=== PATIENT | male | born 1950 | race Caucasian/White ===

== ENCOUNTER 2016-09-09 05:52 | Inpatient (IN) | payer OTHER ==
[~2016-09-09] VITALS: Ht 160 cm; Wt 69.6 kg
[2016-09-09] VITALS (8 sets, daily range): BP systolic 101–167; BP diastolic 61–84; PULSE 54–67; TEMP 36.6–37; O2SAT 93–97; Ht 160 cm; Wt 69.6 kg
[2016-09-09] MEDS ORDERED: ASPIRIN 324 MG CHEW PO STA (06:03)
[2016-09-09] MEDS ORDERED: NITROGLYCERIN 0.4 MG SL PER TAB CHARGE SL STA ×2 (06:03→06:39)
[2016-09-09] MEDS ORDERED: CIPRO 0.2%/HYDROCORTISONE 1% OTIC SUSP 10 ML BTL OTB STA (06:04)
--- NOTE | 2016-09-09 06:10 | EMERGENCY ROOM VISIT NOTE ---
History First contact with patient: 05:57 Chief Complaint: CHEST PAIN Stated Complaint: CHEST PAINS Nursing Triage Summary: pt reports mid chest pain intermittently x 2 days. constant pain started around 0400 while lifting boxes at work. pt reprots "I took tums and it relieved it for a few minutes and then it came back and I started vomiting." History of Present Illness The patient is a 66 year old male who presents to the Emergency Room for evaluation of chest pain. Notes intermittent increasing substernal chest pain/ pressure over the last 2-3 days. Associated nausea. Pain signfiicantly worse this morning with vomiting. No radiation, syncope, shob, palpitations. Denies trauma, injury. Lifts boxes regularly but denies this cause. Admits some discomfort with exertion over last few days. Denies previous cardiac history. Father with [place] in his 60s. Patient notes history of DMII. Denies HTN, DLP, Smoking. Unsure if previous cardiac work-up but denies anything done in last few years. No other symptoms. No medications prior to arrival. Notes patient has been resolving since arrival here. Of note: patient with bilateral ear pain. Has had many times before. Notes swimmers ear which usually needs abx ear drops. This episode ongoing for several weeks. No headache, hearing change, bleeding. No medications taken for this but periodically puts peroxide in his ear canals. Review of Systems See HPI for pertinent positives & negatives. A total of 10 systems reviewed and were otherwise negative. Past Medical/Surgical History Diabetes Social History Smoking Status: Former Smoker Smokeless Tobacco Use: No Drug Use: none Occupation Status: employed Current/Historical Medications Scheduled Metformin Hcl (Glucophage), 1,000 MG PO BID Allergies Coded Allergies: BEE STING (Verified Allergy, Unknown, swelling, 09/09/16) honey bees Physical Exam Vital Signs Date Time Temp Pulse Resp B/P (MAP) Pulse Ox O2 Delivery O2 Flow Rate FiO2 09/09/16 06:31 61 14 146/80 96 Room Air 09/09/16 06:29 56 09/09/16 06:15 68 18 165/90 96 Room Air 09/09/16 05:59 97 Room Air 09/09/16 05:57 36.6 79 20 175/91 97 Room Air 09/09/16 05:57 97 Room Air Physical Exam GENERAL: Patient is well appearing and in no acute distress. HEENT: No acute trauma, normocephalic atraumatic, mucous membranes moist, no nasal congestion, no scleral icterus. Bilateral otitis externa. No mastoid TTP. NECK: No stridor, no adenopathy, no meningismus, trachea is midline. LUNGS: No dyspnea. Clear to auscultation and equal bilaterally. No wheeze, no rhonchi. HEART: Regular rate and rhythm. No murmurs, rubs, gallops appreciated. ABDOMEN: Soft, nontender, bowel sounds positive, no masses appreciated, no peritonitis. BACK: No midline tenderness, no CVA tenderness EXTREMITIES: Normal motion all extremities, no cyanosis, no edema. NEUROLOGIC: Alert and oriented, no acute motor or sensory deficits, no focal weakness, cranial nerves grossly intact. SKIN: No rash, no jaundice, no diaphoresis. Medical Decision & Procedures Laboratory Results 09/09/16 06:10 Red Blood Count 5.48, Mean Corpuscular Volume 86.3, Mean Corpuscular Hemoglobin 29.0, Mean Corpuscular Hemoglobin Concent 33.6, Mean Platelet Volume 9.4, Neutrophils (%) (Auto) 83.9, Lymphocytes (%) (Auto) 10.6, Monocytes (%) (Auto) 3.7, Eosinophils (%) (Auto) 1.2, Basophils (%) (Auto) 0.4, Neutrophils # (Auto) 7.02, Lymphocytes # (Auto) 0.89, Monocytes # (Auto) 0.31, Eosinophils # (Auto) 0.10, Basophils # (Auto) 0.03 09/09/16 06:10 Test 09/09/16 06:03 09/09/16 06:10 09/09/16 06:18 09/09/16 06:20 Creatine Kinase MB Ratio (0-3.0) White Blood Count 8.37 K/uL (4.8-10.8) Red Blood Count 5.48 M/uL (4.7-6.1) Hemoglobin 15.9 g/dL (14.0-18.0) Hematocrit 47.3 % (42-52) Mean Corpuscular Volume 86.3 fL (80-100) Mean Corpuscular Hemoglobin 29.0 pg (25-34) Mean Corpuscular Hemoglobin Concent 33.6 g/dl (32-36) Platelet Count 299 K/uL (130-400) Mean Platelet Volume 9.4 fL (7.4-10.4) Neutrophils (%) (Auto) 83.9 % Lymphocytes (%) (Auto) 10.6 % Monocytes (%) (Auto) 3.7 % Eosinophils (%) (Auto) 1.2 % Basophils (%) (Auto) 0.4 % Neutrophils # (Auto) 7.02 K/uL (1.4-6.5) Lymphocytes # (Auto) 0.89 K/uL (1.2-3.4) Monocytes # (Auto) 0.31 K/uL (0.11-0.59) Eosinophils # (Auto) 0.10 K/uL (0-0.5) Basophils # (Auto) 0.03 K/uL (0-0.2) RDW Standard Deviation 39.9 fL (36.4-46.3) RDW Coefficient of Variation 12.5 % (11.5-14.5) Immature Granulocyte % (Auto) 0.2 % Immature Granulocyte # (Auto) 0.02 K/uL (0.00-0.02) Prothrombin Time 10.0 SECONDS (9.0-12.0) Prothromb Time International Ratio 0.9 (0.9-1.1) Activated Partial Thromboplast Time 25.7 SECONDS (21.0-31.0) Partial Thromboplastin Ratio 1.0 Est Creatinine Clear Calc Drug Dose 67.3 ml/min Estimated GFR () 91.8 Estimated GFR (Non- 79.2 BUN/Creatinine Ratio 14.2 (10-20) Calcium Level 9.4 mg/dl (8.5-10.1) Total Bilirubin 0.4 mg/dl (0.2-1) Direct Bilirubin < 0.1 mg/dl (0-0.2) Aspartate Amino Transf (AST/SGOT) 27 U/L (15-37) Alanine Aminotransferase (ALT/SGPT) 35 U/L (12-78) Total Creatine Kinase 165 U/L (39-308) Total Protein 7.9 gm/dl (6.4-8.2) Albumin 3.7 gm/dl (3.4-5.0) Lipase 297 U/L (73-393) Bedside Troponin I 0.270 ng/ml (0-0.045) Bedside Hemoglobin 16.7 g/dl (14.0-18.0) Bedside Hematocrit 49 % (42-52) Bedside Sodium 139 mEq/L (135-144) Bedside Potassium 3.8 mEq/L (3.3-5.0) Bedside Chloride 102 mEq/L (101-112) Bedside Total CO2 23 mEq/l (24-31) Anion Gap 19.0 mmol/L (16-25) Bedside Blood Urea Nitrogen 15 mg/dl (7-18) Bedside Creatinine 0.6 mg/dl (0.6-1.3) Bedside Glucose (other) 366 mg/dl (70-99) Bedside Ionized Calcium (Lester) 1.14 mmol/l (1.12-1.32) Medications Administered Medications (Trade) Dose Ordered Sig/Pako Route Start Time Stop Time Status Last Admin Dose Admin Aspirin (Aspirin Chew) 324 mg NOW STAT PO 09/09/16 06:03 09/09/16 06:05 DC 09/09/16 06:12 324 MG Nitroglycerin (Nitrostat Tab) 0.4 mg NOW STAT SL 09/09/16 06:03 09/09/16 06:05 DC 09/09/16 06:03 0.4 MG Ciprofloxacin/ Hydrocortisone (Cipro Hc Otic Susp) 2 drops NOW STAT OTB 09/09/16 06:04 09/09/16 06:06 DC 09/09/16 06:29 150 DROPS Nitroglycerin (Nitrostat Tab) 0.4 mg NOW STAT SL 09/09/16 06:39 09/09/16 06:41 DC 09/09/16 06:39 0.4 MG Insulin Human Regular (novoLIN-R U-100 PER UNIT) 6 units NOW STAT IV 09/09/16 07:02 09/09/16 07:03 DC 09/09/16 07:02 6 UNITS Sodium Chloride 1,000 ml @ 999 mls/hr Q1H1M STAT IV 09/09/16 07:02 09/09/16 08:02 09/09/16 07:09 999 MLS/HR ECG Indication: chest pain Rate (beats per minute): 68 Rhythm: normal sinus Findings: PAC, ST depression (Anterior), no acute ischemic change Comparison ECG Date: no prior available Change: Repeat EKG post SLNTG with symptoms improvement: SR at 77 with no ectopy and resolution of ST depressions seen in previous EKG. Evidence of Sinus arrhythmia. ED Course 6:40a - resolution of symptoms. Repeat EKG shows improvement in ST depressions. Reviewed at length risks/benefits of heparin and he is agreeable. Hospitalist paged. Medical Decision Differential: Cardiac Ischemia (STEMI, NSTEMI, Unstable Angina, etc), Aortic Dissection, Arrhythmia, Pulmonary Embolism, Pneumonia, Pneumothorax, MSK, Infectious, Pericarditis/Myocarditis, Esophageal Rupture, Gastrointestinal, amongst other pathologies entertained. 66 yr male arrives with complaint of substernal chest discomfort. Associated with nausea/vomiting earlier. Improving on arrival and with SLTNG. Given ASA 324mg PO. Initial EKG with anterior depressions resolved with SLTNG and BP improvement. Initial Trop positive. Consistent with NSTEMI. With normal CXR, normal pulses and resolution of pain I feel that dissection, cholecystitis, etc unlikely. Discussed contraindications to Heparin which he denies any. Discussed risks and he understands and gives verbal agreement to starting heparin. Hyperglycemia consistent with his diabetes and admits rarely checks sugars. This also likely contributes to his Otitis externa issues. I reviewed findings and case with hospitalist 7:20am and they will evaluate patient further. Impression Primary Impression: NSTEMI (non-ST elevated myocardial infarction) Additional Impressions: Otitis externa of both ears Hyperglycemia Critical Care I have personally spent greater than 35 minutes of critical care time in the direct management of this patient. This was a life/limb threatening event. This includes time spent evaluating patient, direct bedside care, chart review, placing orders, interpretation of diagnostic studies, discussion with consultants, patient, and family members, as well as other required patient management activities. This 35 minutes is in excess of all separately billable procedures. Departure Information Referrals No Doctor, Assigned (PCP) Patient Instructions My [facility] Problem Qualifiers Additional Impressions:
[2016-09-09] MEDS ORDERED: METF-384 PO (06:12)
[2016-09-09 06:26] LABS: BASO % 0.4 %; BASO ABS # 0.03 K/uL (0-0.2); COMPLETE YES; EOS % 1.2 %; HEMATOCRIT 47.3 % (42-52); IG% 0.2 %; LYMPH % 10.6 %; LYMPH ABS # 0.89 K/uL (1.2-3.4); MEAN CELL VOLUME 86.3 fL (80-100); MEAN CORPUSCULAR HGB CONC 33.6 g/dl (32-36); MEAN PLATELET VOLUME 9.4 fL (7.4-10.4); MONO % 3.7 %; NEUT % 83.9 %; PLATELET COUNT 299 K/uL (130-400); RED BLOOD COUNT 5.48 M/uL (4.7-6.1); WHITE BLOOD COUNT 8.37 K/uL (4.8-10.8)
[2016-09-09 06:33] LABS: ISTAT CREATININE 0.6 mg/dl (0.6-1.3); ISTAT HEMOGLOBIN 16.7 g/dl (14.0-18.0); ISTAT IONIZED CALCIUM 1.14 mmol/l (1.12-1.32)
[2016-09-09] MEDS ORDERED: NITROGLYCERIN 0.4 MG SL PER TAB CHARGE ONE (06:41)
--- NOTE | 2016-09-09 06:41 | DIAGNOSTIC IMAGING REPORT ---
CHEST ONE VIEW PORTABLE CLINICAL HISTORY: Atypical chest pain COMPARISON STUDY: No previous studies for comparison. FINDINGS: The cardiac and mediastinal contours are normal. There is no evidence of focal pulmonary consolidation. There is no evidence of failure. No pleural effusions are visualized.[ IMPRESSION: No active disease in the chest. Electronically signed by: Tomas Dia M.D. 09/09/2016 6:40 AM Dictated Date/Time: 09/09/2016 6:39 AM
[2016-09-09 06:49] LABS: INR 0.9 (0.9-1.1)
[2016-09-09] MEDS ORDERED: NovoLIN-R INSULIN PER UNIT CHARGE IV STA (07:02)
[2016-09-09] MEDS ORDERED: SODIUM CHLORIDE 0.9% 1000ML 1,000 ML IV STA (07:02)
[2016-09-09 07:09] LABS: ALT/SGPT 35 U/L (12-78); BLOOD UREA NITROGEN 14 mg/dl (7-18); BUN/CREATININE RATIO 14.2 (10-20); CALCIUM 9.4 mg/dl (8.5-10.1); CARBON DIOXIDE 21 mmol/L (21-32); CHLORIDE 103 mmol/L (98-107); GLUCOSE 346 mg/dl (70-99); POTASSIUM 3.8 mmol/L (3.5-5.1); SODIUM 137 mmol/L (136-145)
[2016-09-09 07:12] LABS: AST/SGOT 27 U/L (15-37)
[2016-09-09] MEDS ORDERED: HEPARIN 25000 UNIT/500 ML D5W ONE (07:24)
[2016-09-09] MEDS ORDERED: HEPARIN SOD 5000 UNIT/0.5 ML CARP ONE (07:24)
[2016-09-09 07:44] LABS: ALKALINE PHOSPHATASE 92 U/L (45-117); BETA-HYDROXYBUTYRATE 2.43 mg/dL (0.2-2.81); CKMB/CK RATIO 5.2 (0-3.0)
[2016-09-09] MEDS ORDERED: ONDANSETRON INJ 2 MG/ML 2 ML VIAL IV PRN (08:15)
[2016-09-09] MEDS ORDERED: ZOLPIDEM TARTRATE 5 MG TAB PO PRN ×2 (08:15)
[2016-09-09] MEDS ORDERED: POLYETHYLENE (MIRALAX) 17 GM PACK PO PRN (08:15)
[2016-09-09] MEDS ORDERED: MAGNESIUM HYDROXIDE SUSP 30 ML UDC PO PRN (08:15)
[2016-09-09] MEDS ORDERED: ACETAMINOPHEN 325 MG TAB PO PRN (08:15)
[2016-09-09] MEDS ORDERED: ALUMINUM/MAGNESIUM/SIMETH (MAALOX MAX) 30 ML UDC PO PRN (08:15)
[2016-09-09] MEDS ORDERED: MoRPHine SULFATE 2 MG/ML CARP IV PRN (08:15)
[2016-09-09] MEDS ORDERED: NITROGLYCERIN 0.4 MG SL PER TAB CHARGE SL PRN (08:15)
[2016-09-09] MEDS ORDERED: LISINOPRIL 5 MG TAB PO ONE (09:15)
--- NOTE | 2016-09-09 09:15 | History and Physical ---
History & Physical Date & Time of Service: Sep 09, 2016 at 08:33 Chief Complaint: 1. Chest Pain. 2. Acute Coronary Syndrome. 3. Elevated Cardiac Enzymes. Primary Care Physician: Valentín Vasquez D.O. History of Present Illness Source: patient Mr. Rose is a 66-year-old white male with a history of Uncontrolled Type 2 DM, presumed Dyslipidemia, and currently with elevated BP (without prior diagnosis of HTN) who presented acutely to [facility] ER earlier today complaining of intermittent Substernal Chest Pain for the past 2-3 days, and the development of associated nausea and vomiting at 0500 today. Patient denies any prior cardiac history or prior cardiac events - he does however have a very strong family history of heart disease. Patient states approximately 2-3 days ago he began to note intermittent chest pain (described only as pain) which would come and go, lasting 15-20 minutes at a time, with longest episode lasting approximately 60-90 minutes. He thought it was "heartburn" so he took some Tums. He is uncertain if this helped his discomfort or not. Nonetheless, this chest pain seemed to be exacerbated while working, particularly in a warm environment. After arriving at the ER, he was given sublingual nitroglycerin which relieved his discomfort. Patient offers no other complaints. He has a very mild chest discomfort at the present time, it does not radiate, and he is no longer nauseated. He denies any associated diaphoresis or dyspnea. He has not noticed any recent change in his exertional tolerance -- but he does not exercise routinely. He does work several hours every day. He denies any exertional neck, jaw, back, or arm pain. He denies any shortness of breath, unusual dyspnea on exertion, orthopnea , or PND. He denies any palpitations, syncope, or near syncope. Thus far, patient has nonspecific ST abnormality on his EKG, elevated CKmb, and an elevated Troponin I of 0.270 ng/mL. Past Medical/Surgical History 1. Uncontrolled type 2 DM. Initially diagnosed with diabetes 6 or 7 years ago. 2. Presumed Dyslipidemia 3. Elevated BP currently without prior history of hypertension. 4. Bilateral otitis externa currently. 5. History of appendectomy. 6. History of tonsillectomy. 7. Excision of cyst from left forearm. 8. History of dental surgery. Family History Father -- CAD, DC Mother -- DM, CHF, Heart disease. Brother -- Agent orange related disease. Sister -- Colitis, crippling arthritis. Sister -- DM, Breast Cancer, Glaucoma Social History . Works full-time at [employer]. Also works part-time construction. Former smoker - quit 40 years ago. Former smokeless tobacco user - quit several years ago. No routine exercise program. Smoking Status: Former Smoker Smokeless Tobacco Use: No Drug Use: none Marital Status: Housing status: lives with family Occupational Status: employed Immunizations History of Influenza Vaccine: Unknown History of Tetanus Vaccine?: Unknown History of Pneumococcal: Unknown History of Hepatitis B Vaccine: Unknown Multi-Drug Resistant Organisms History of MDRO: No Allergies Coded Allergies: BEE STING (Verified Allergy, Unknown, swelling, 09/09/16) honey bees Home Medications Scheduled Metformin Hcl (Glucophage), 1,000 MG PO BID Review of Systems Constitutional: No fever, No chills, No sweats, No weight loss, No weakness, No fatigue, No problem reported Eyes: No worsening of vision, No eye pain, No redness, No discharge, No diplopia, No problem reported Cardiovascular: + chest pain Abdomen: + nausea, + vomiting Genitourinary - Male: No hematuria, No dysuria, No urinary frequency, No urinary urgency, No urinary hesitancy, No urinary retention, No urinary incontinence, No penile discharge, No lesions, No impotence, No problem reported Neurologic: No memory loss, No paralysis, No weakness, No numbness/tingling, No vertigo, No balance problems, No problem reported Psychiatric: No depression symptoms, No anhedonism, No anxiety, No insomnia, No substance abuse, No problem reported Endocrine: No fatigue, No excessive thirst, No excessive urination, No problem reported Hematologic / Lymphatic: No abnormal bleeding/bruising, No clotting problems, No swollen lymph nodes, No night sweats, No problem reported Integumentary: No rash, No itch, No new/changing skin lesions, No color change , No bleeding, No problem reported Allergic / Immunologic: No environmental allergies, No seasonal allergies, No pet sensitivities, No food allergies, No hives, No frequent infections, No poor healing, No prolonged convalescence, No problem reported Physical Exam Vital Signs Date Time Temp Pulse Resp B/P (MAP) Pulse Ox O2 Delivery O2 Flow Rate FiO2 09/09/16 08:26 52 16 137/83 97 Room Air 09/09/16 07:28 60 20 156/78 93 Room Air 09/09/16 07:25 93 Room Air 09/09/16 06:31 61 14 146/80 96 Room Air 09/09/16 06:29 56 09/09/16 06:15 68 18 165/90 96 Room Air 09/09/16 05:59 97 Room Air 09/09/16 05:57 36.6 79 20 175/91 97 Room Air 09/09/16 05:57 97 Room Air General: Patient in no acute distress. HEENT: Head is atraumatic, normocephalic. EOMs intact. Sclerae anicteric. Facies symmetric. No perioral cyanosis. Neck: No thyromegaly, adenopathy, or JVD. Carotid upstrokes +2 bilaterally without bruits. JVP is at the level of the clavicle sitting upright. Chest and Lungs: Clear to auscultation throughout all lung whitley, no wheezes, rales, or rhonchi. CVS: S1 and S2 are regular, bradycardic at 58 bpm. No murmurs, gallops, or rubs. PMI is nondisplaced. No lifts, heaves, or thrills. No abdominal aortic or renal bruits. Abdominal Exam: Bowel sounds present. No masses, organomegaly, or tenderness. Extremities: No clubbing, cyanosis, or edema. Intact posterior tibial and radial pulses bilaterally. David's test positive for radial and ulnar arterial reflow. Neurologic Exam: Patient is awake, alert, and oriented. Pleasant and cooperative. Answers questions appropriately. Speech is clear. Normal movement in all 4 extremities. Gait pattern not assessed. EKG shows nonspecific ST segment abnormality, predominantly in the anterior leads. Telemetry shows NSR with short OR interval vs junctional rhythm. Laboratories as listed below. Elevated troponin I level. CK MB represents 5.2 % of total CK which is considered clinically significant. Diagnostics Laboratory Results Results Past 24 Hours Test 09/09/16 06:10 09/09/16 06:18 09/09/16 06:20 09/09/16 07:33 Range/Units White Blood Count 8.37 4.8-10.8 K/uL Red Blood Count 5.48 4.7-6.1 M/uL Hemoglobin 15.9 14.0-18.0 g/dL Hematocrit 47.3 42-52 % Mean Corpuscular Volume 86.3 80-100 fL Mean Corpuscular Hemoglobin 29.0 25-34 pg Mean Corpuscular Hemoglobin Concent 33.6 32-36 g/dl Platelet Count 299 130-400 K/uL Mean Platelet Volume 9.4 7.4-10.4 fL Neutrophils (%) (Auto) 83.9 % Lymphocytes (%) (Auto) 10.6 % Monocytes (%) (Auto) 3.7 % Eosinophils (%) (Auto) 1.2 % Basophils (%) (Auto) 0.4 % Neutrophils # (Auto) 7.02 1.4-6.5 K/uL Lymphocytes # (Auto) 0.89 1.2-3.4 K/uL Monocytes # (Auto) 0.31 0.11-0.59 K/uL Eosinophils # (Auto) 0.10 0-0.5 K/uL Basophils # (Auto) 0.03 0-0.2 K/uL RDW Standard Deviation 39.9 36.4-46.3 fL RDW Coefficient of Variation 12.5 11.5-14.5 % Immature Granulocyte % (Auto) 0.2 % Immature Granulocyte # (Auto) 0.02 0.00-0.02 K/uL Prothrombin Time 10.0 9.0-12.0 SECONDS Prothromb Time International Ratio 0.9 0.9-1.1 Activated Partial Thromboplast Time 25.7 21.0-31.0 SECONDS Partial Thromboplastin Ratio 1.0 Sodium Level 137 136-145 mmol/L Potassium Level 3.8 3.5-5.1 mmol/L Chloride Level 103 98-107 mmol/L Carbon Dioxide Level 21 21-32 mmol/L Anion Gap 13.0 19.0 16-25 mmol/L Blood Urea Nitrogen 14 7-18 mg/dl Creatinine 1.00 0.60-1.40 mg/dl Est Creatinine Clear Calc Drug Dose 67.3 ml/min Estimated GFR () 91.8 Estimated GFR (Non- 79.2 BUN/Creatinine Ratio 14.2 10-20 Random Glucose 346 70-99 mg/dl Calcium Level 9.4 8.5-10.1 mg/dl Total Bilirubin 0.4 0.2-1 mg/dl Direct Bilirubin < 0.1 0-0.2 mg/dl Aspartate Amino Transf (AST/SGOT) 27 15-37 U/L Alanine Aminotransferase (ALT/SGPT) 35 12-78 U/L Alkaline Phosphatase 92 45-117 U/L Total Creatine Kinase 165 39-308 U/L Creatine Kinase MB 8.5 0.5-3.6 ng/ml Creatine Kinase MB Ratio 5.2 0-3.0 Total Protein 7.9 6.4-8.2 gm/dl Albumin 3.7 3.4-5.0 gm/dl Lipase 297 73-393 U/L Beta-Hydroxybutyric Acid 2.43 0.2-2.81 mg/dL Bedside Troponin I 0.270 0-0.045 ng/ml Bedside Hemoglobin 16.7 14.0-18.0 g/dl Bedside Hematocrit 49 42-52 % Bedside Sodium 139 135-144 mEq/L Bedside Potassium 3.8 3.3-5.0 mEq/L Bedside Chloride 102 101-112 mEq/L Bedside Total CO2 23 24-31 mEq/l Bedside Blood Urea Nitrogen 15 7-18 mg/dl Bedside Creatinine 0.6 0.6-1.3 mg/dl Bedside Glucose (other) 366 70-99 mg/dl Bedside Ionized Calcium (Lester) 1.14 1.12-1.32 mmol/l Bedside Glucose 251 70-99 mg/dl Impression Assessment and Plan 1. ACS / NSTEMI: -- Admit to Dr. Negrete's service, on telemetry floor. -- Heparin drip, standard weight based dose, no bolus. -- Lopressor 25 mg po bid. -- Lisinopril 5 mg qd. -- Atorvastatin 80 mg qd. -- NitroPaste 1 inch to chest wall every 6 hours. -- Aspirin 81 mg a day. -- Serial cardiac enzymes. -- Morphine 2 mg IV q 30 min prn chest pain. -- AHA, diabetic diet for now. -- Cardiac Catheterization / Coronary Angiography on Sunday morning if patient remains stable. -- Will do LHC sooner if patient has persistent CP, dynamic EKG changes, or becomes unstable. 2. Type 2 DM: -- Hold Metformin. -- BSG checks. -- Sliding scale Novolog insulin. 3. Elevated BP: -- Lopressor added. -- Lisinopril added. -- Continue to monitor closely. 4. Presumed Dyslipidemia (based on DM and current cardiac event) -- High intensity statin therapy. 5. Bilateral Otitis Externa: -- Continue Cipro otic solution. Level of Care Telemetry Advanced Directives Existing Living Will: No Existing Power of Aircraft Mechanic: No Resuscitation Status FULL RESUSCITATION VTE Prophylaxis VTE Risk Assessment Done? Y/N: Yes Risk Level: Low Given or contraindicated: Other Anticoagulation (Heparin drip), T.E.D. Stockings Social Service Consult None Apply Note Attending Attestation: Pt seen/examined, chart reviewed, care plan d/w ROSA Olivares. I agree with the tomlinson components of his admission documentation. Pleasant 66yo male with h/o uncontrolled T2DM, hyperlipidemia, strong family history of CAD, and recurrent otitis externa who presented with 2-3 days of crescendoing chest pain. Upon ER presentation today has evidence of NSTEMI with +troponin and relief of chest pain with nitroglycerin. I saw the patient on the telemetry floor and he reported that he could "tell something was still there" (ie mild sub-xiphoid discomfort) but he claimed it was <0/10 on a pain scale. He denied any dyspnea, diaphoresis, nausea, or emesis following admission. Started on heparin drip in ER. PMH, PSH, allergies, meds, sochx, famhx, ros - reviewed VSS no fever gen - nad ears - no drainage from canals; his canals are very tight and mildly swollen but he has no pain with manipulation of either pinna or the tragus mouth - MMM neck - no JVD heart - RRR, s1, s2, no murmur lungs - CTA b/l abd - soft NT ND BS+ ext - no edema, pulses 2+ b/l EKG - Initial EKG with scant J-point upsloping in the inferior leads and lateral chest leads; short OR interval 2nd EKG largely unchanged; the scant J-point upsloping doesn't appear as prominent CXR - normal 2nd troponin 12.8 A/P: 1. NSTEMI in setting of multiple CAD risk factors. 2. Uncontrolled T2DM. 3. B/l otitis externa - likely due to #2. No signs of malignant otitis externa. 4. Hyperlipidemia. 5. Probable essential HTN. Agree with heparin drip, BB, echo, aspirin, nitrates, high-intensity statin. Likely will need ERNESTO. Add lantus for improved glycemic control. Check hemoglobin a1c, lipids, and TSH. Serial troponins. Cipro HC for b/l otitis externa. Agree that if symptoms persist or recur would need more emergent/urgent cath. Eduardo Negrete MD Additional Copies To Valentín Vasquez D.O.
[2016-09-09] MEDS ORDERED: GLUCAGON FOR INJ 1 MG VIAL SQ PRN (09:30)
[2016-09-09] MEDS ORDERED: GLUCOSE 40% GEL 15 GM TUBE PO PRN (09:30)
[2016-09-09] MEDS ORDERED: DEXTROSE 50% 50 ML SYR IV PRN (09:30)
[2016-09-09] MEDS ORDERED: GLUCOSE 10 TABS/TUBE PO PRN (09:30)
[2016-09-09] MEDS: METOPROLOL TARTRATE 25 MG TAB PO SCH ×2 (10:01→20:02)
[2016-09-09] MEDS: ATORVASTATIN 40 MG TAB PO SCH (10:01)
[2016-09-09] MEDS: NITROGLYCERIN OINT 2% 1GM PACKET EXT SCH ×3 (10:01→20:01)
[2016-09-09] MEDS: INSULIN ASPART 100 UNITS/ML 3 ML PEN SC SCH ×3 (12:18→21:18)
[2016-09-09 14:26] LABS: PARTIAL THROMBOPLASTIN RATIO 1.7
[2016-09-09] MEDS ORDERED: HEPARIN IV BOLUS 3,000 UNIT in SYRINGE 0 ML IV ONE (15:15)
[2016-09-09 15:33] LABS: CKMB/CK RATIO 10.2 (0-3.0)
[2016-09-09] MEDS ORDERED: NURSING VERBAL MED ORDER ONE (17:30)
[2016-09-09] MEDS: CIPRO 0.2%/HYDROCORTISONE 1% OTIC SUSP 10 ML BTL OT SCH (20:02)
[2016-09-09 20:29] LABS: PARTIAL THROMBOPLASTIN RATIO 2.3
[2016-09-10 03:21] VITALS: BP 101/61; PULSE 77; TEMP 36.7; O2SAT 96
[2016-09-10] MEDS: HEPARIN 25,000 UNIT/500ML D5W 500 ML IV PRN ×2 (03:49→23:45)
[2016-09-10] MEDS: NITROGLYCERIN OINT 2% 1GM PACKET EXT SCH ×4 (04:11→22:00)
[2016-09-10 07:02] LABS: BASO % 0.3 %; BASO ABS # 0.03 K/uL (0-0.2); COMPLETE YES; EOS % 2.1 %; HEMATOCRIT 45.7 % (42-52); IG% 0.2 %; LYMPH % 21.7 %; LYMPH ABS # 2.16 K/uL (1.2-3.4); MEAN CELL VOLUME 87.9 fL (80-100); MEAN CORPUSCULAR HGB CONC 34.1 g/dl (32-36); MEAN PLATELET VOLUME 9.8 fL (7.4-10.4); MONO % 6.5 %; NEUT % 69.2 %; PLATELET COUNT 269 K/uL (130-400); WHITE BLOOD COUNT 9.97 K/uL (4.8-10.8)
[2016-09-10 07:25] LABS: PARTIAL THROMBOPLASTIN RATIO 2.1
[2016-09-10 07:29] LABS: BUN/CREATININE RATIO 17.7 (10-20); CALCIUM 8.7 mg/dl (8.5-10.1); CREATININE 0.75 mg/dl (0.60-1.40); POTASSIUM 3.8 mmol/L (3.5-5.1)
[2016-09-10 07:37] LABS: CKMB/CK RATIO 7.1 (0-3.0)
[2016-09-10 07:40] VITALS: BP 134/79; PULSE 72; TEMP 36.7; O2SAT 94
[2016-09-10] MEDS: LISINOPRIL 5 MG TAB PO SCH (08:20)
[2016-09-10] MEDS: METOPROLOL TARTRATE 25 MG TAB PO SCH ×2 (08:20→19:58)
[2016-09-10] MEDS: ASPIRIN 81 MG ECTAB PO SCH (08:20)
[2016-09-10] MEDS: ATORVASTATIN 40 MG TAB PO SCH (08:21)
[2016-09-10] MEDS: CIPRO 0.2%/HYDROCORTISONE 1% OTIC SUSP 10 ML BTL OT SCH ×2 (08:21→19:58)
[2016-09-10] MEDS: INSULIN ASPART 100 UNITS/ML 3 ML PEN SC SCH ×4 (08:27→21:00)
--- NOTE | 2016-09-10 08:50 | Hospitalist Progress Note ---
Hospitalist Progress Note Date of Service Sep 10, 2016. (Kevin Olivares,P.A.) Subjective Pt evaluation today including: conversation w/ patient, physical exam, chart review, lab review, review of studies, review of inpatient medication list Pain: None Mr. Rose is a 66-year-old white male with a history of Type 2 DM, Dyslipidemia , and ongoing elevated BP readings who presented yesterday with intermittent chest pain over the preceding 2-3 days, followed by the development of nausea and vomiting the morning of admission. His EKG showed nonspecific ST abnormalities, and his troponin I level was elevated. His troponin I level has subsequently peaked at > 22.0 ng/mL. Patient is diagnosed with an NSTEMI. Echocardiogram is currently pending, and patient will undergo cardiac catheterization tomorrow to further evaluate coronary anatomy. Patient remains asymptomatic at this time. He has had no further chest pain or discomfort. He has not had any further nausea or vomiting. He further denies any dyspnea, orthopnea, PND, diaphoresis, or palpitations. Patient offers no other complaints or concerns. (Kevin Olivares,P.A.) Medications Current Inpatient Medications Medications (Trade) Dose Ordered Sig/Pako Route Start Time Stop Time Status Last Admin Dose Admin Acetaminophen (Tylenol Tab) 650 mg Q4H PRN PO 09/09/16 08:15 10/09/16 08:14 Al Hydrox/Mg Hydrox/Simethicone (Maalox Max Susp) 15 ml Q4H PRN PO 09/09/16 08:15 10/09/16 08:14 Magnesium Hydroxide (Milk Of Magnesia Susp) 30 ml Q12H PRN PO 09/09/16 08:15 10/09/16 08:14 Zolpidem Tartrate (Ambien Tab) 5 mg HSZ PRN PO 09/09/16 08:15 10/09/16 08:14 Ondansetron HCl (Zofran Inj) 4 mg Q6H PRN IV 09/09/16 08:15 10/09/16 08:14 Nitroglycerin (Nitrostat Tab) 0.4 mg UD PRN SL 09/09/16 08:15 10/09/16 08:14 Nitroglycerin (Nitroglycerin 2% Oint) 1 inch Q6H EXT 09/09/16 10:00 10/09/16 08:14 09/10/16 04:11 1 INCH Morphine Sulfate (MoRPHine SULFATE INJ) 2 mg Q30M PRN IV 09/09/16 08:15 09/23/16 08:14 Aspirin (Ecotrin Tab) 81 mg QAM PO 09/10/16 09:00 10/10/16 08:59 Polyethylene (Miralax Powder Packet) 17 gm DAILY PRN PO 09/09/16 08:15 10/09/16 08:14 Atorvastatin Calcium (Lipitor Tab) 80 mg QAM PO 09/09/16 09:00 10/09/16 08:59 09/09/16 10:01 80 MG Metoprolol Tartrate (Lopressor Tab) 25 mg BID PO 09/09/16 09:00 10/09/16 08:59 09/09/16 20:02 25 MG Insulin Aspart (novoLOG ASPART) SLIDING SCALE G... ACHS SC 09/09/16 11:00 10/09/16 10:59 09/09/16 21:18 1 UNITS Lisinopril (Zestril Tab) 5 mg QAM PO 09/10/16 09:00 10/10/16 08:59 Glucose (Glucose 40% Gel) 15-30 GRAMS 15 GRAMS... UD PRN PO 09/09/16 09:30 10/09/16 09:29 Glucose (Glucose Chew Tab) 4-8 Tablets 4 Tabl... UD PRN PO 09/09/16 09:30 10/09/16 09:29 Dextrose (Dextrose 50% 50ML Syringe) 25-50ML OF 50% DW IV FOR... UD PRN IV 09/09/16 09:30 10/09/16 09:29 Glucagon (Glucagon Inj) 1 mg UD PRN SQ 09/09/16 09:30 10/09/16 09:29 Heparin Sodium/ Dextrose 500 ml @ 26 mls/hr [id number] PRN IV 09/09/16 12:30 10/09/16 12:29 09/10/16 03:49 26 MLS/HR Ciprofloxacin/ Hydrocortisone (Cipro Hc Otic Susp) 2 drops BID OT 09/09/16 21:00 10/09/16 20:59 09/09/16 20:02 2 DROPS Insulin Glargine (Lantus Solostar Pen) 10 units QAM SC 09/10/16 09:00 10/10/16 08:59 UNV (Kevin Olivares,P.A.) Objective Vital Signs Date Time Temp Pulse Resp B/P (MAP) Pulse Ox O2 Delivery O2 Flow Rate FiO2 09/10/16 07:40 36.7 72 20 134/79 (97) 94 Room Air 09/10/16 04:00 Room Air 09/10/16 03:21 36.7 77 18 101/61 (74) 96 Room Air 09/10/16 00:00 Room Air 09/09/16 23:49 36.6 67 18 101/61 (74) 94 Room Air 09/09/16 20:00 Room Air 09/09/16 19:26 36.6 67 20 147/77 (100) 95 Room Air 09/09/16 16:00 Room Air 09/09/16 15:28 36.6 59 18 162/84 (110) 96 Room Air 09/09/16 12:00 Room Air 09/09/16 11:37 37.0 56 20 149/76 (100) 95 Room Air 09/09/16 09:15 36.9 54 18 167/78 (107) 97 Room Air 09/09/16 08:26 52 16 137/83 97 Room Air (Kevin Olivares,P.A.) Physical Exam Notes: General: Patient in no acute distress. HEENT: Head is atraumatic, normocephalic. EOMs intact. Sclerae anicteric. Facies symmetric. No perioral cyanosis. Neck: No thyromegaly, adenopathy, or JVD. Carotid upstrokes +2 bilaterally without bruits. JVP is at the level of the clavicle sitting upright. Chest and Lungs: Clear to auscultation throughout all lung whitley, no wheezes, rales, or rhonchi. CVS: S1 and S2 are regular at 62 bpm. No murmurs, gallops, or rubs. PMI is nondisplaced. No lifts, heaves, or thrills. No abdominal aortic or renal bruits. Abdominal Exam: Bowel sounds present. No masses, organomegaly, or tenderness. Extremities: No clubbing, cyanosis, or edema. Intact posterior tibial and radial pulses bilaterally. Normal femoral pulses bilaterally. Neurologic Exam: Patient is awake, alert, and oriented. Pleasant and cooperative. Answers questions appropriately. Speech is clear. Normal movement in all 4 extremities. Gait pattern not assessed. EKG performed today shows sinus rhythm with nonspecific ST abnormalities, with a short MN interval. Possibly an ectopic atrial pacemaker. (Kevin Olivares,P.A.) Laboratory Results Last 24 Hours Test 09/09/16 11:35 09/09/16 14:00 09/09/16 16:38 09/09/16 19:54 Bedside Glucose 236 mg/dl 167 mg/dl Activated Partial Thromboplast Time 44.8 SECONDS 60.9 SECONDS Partial Thromboplastin Ratio 1.7 2.3 Magnesium Level 2.0 mg/dl Total Creatine Kinase 640 U/L Creatine Kinase MB 65.3 ng/ml Creatine Kinase MB Ratio 10.2 Troponin I 12.800 ng/ml Test 09/09/16 19:58 09/09/16 20:35 09/10/16 06:34 09/10/16 06:40 Total Creatine Kinase 697 U/L 461 U/L Creatine Kinase MB 62.8 ng/ml 32.8 ng/ml Creatine Kinase MB Ratio 9.0 7.1 Troponin I 20.200 ng/ml 11.500 ng/ml Bedside Glucose 160 mg/dl 187 mg/dl White Blood Count 9.97 K/uL Red Blood Count 5.20 M/uL Hemoglobin 15.6 g/dL Hematocrit 45.7 % Mean Corpuscular Volume 87.9 fL Mean Corpuscular Hemoglobin 30.0 pg Mean Corpuscular Hemoglobin Concent 34.1 g/dl Platelet Count 269 K/uL Mean Platelet Volume 9.8 fL Neutrophils (%) (Auto) 69.2 % Lymphocytes (%) (Auto) 21.7 % Monocytes (%) (Auto) 6.5 % Eosinophils (%) (Auto) 2.1 % Basophils (%) (Auto) 0.3 % Neutrophils # (Auto) 6.90 K/uL Lymphocytes # (Auto) 2.16 K/uL Monocytes # (Auto) 0.65 K/uL Eosinophils # (Auto) 0.21 K/uL Basophils # (Auto) 0.03 K/uL RDW Standard Deviation 41.9 fL RDW Coefficient of Variation 13.0 % Immature Granulocyte % (Auto) 0.2 % Immature Granulocyte # (Auto) 0.02 K/uL Activated Partial Thromboplast Time 55.3 SECONDS Partial Thromboplastin Ratio 2.1 Sodium Level 135 mmol/L Potassium Level 3.8 mmol/L Chloride Level 104 mmol/L Carbon Dioxide Level 24 mmol/L Anion Gap 7.0 mmol/L Blood Urea Nitrogen 13 mg/dl Creatinine 0.75 mg/dl Est Creatinine Clear Calc Drug Dose 87.3 ml/min Estimated GFR () 112.4 Estimated GFR (Non- 96.9 BUN/Creatinine Ratio 17.7 Random Glucose 197 mg/dl Calcium Level 8.7 mg/dl (Kevin Olivares,P.A.) Assessment and Plan 1. ACS / NSTEMI: -- Continue Heparin drip. -- Lopressor 25 mg po bid. -- Lisinopril 5 mg qd. -- Atorvastatin 80 mg qd. -- NitroPaste 1 inch to chest wall every 6 hours. -- Aspirin 81 mg a day. -- Serial cardiac enzymes. -- Morphine 2 mg IV q 30 min prn chest pain. -- Echocardiogram -- NPO after midnight in preparation of Cardiac Catheterization / Coronary Angiography tomorrow morning. -- Consult Dr. Ward for Cardiac Catheterization tomorrow morning. 2. Type 2 DM: -- Continue holding Metformin. -- BSG checks. -- Continue Lantus -- BSG improve. -- Sliding scale Novolog insulin. 3. HTN: -- Continue Lopressor. -- Continue Lisinopril. -- Continue to monitor closely. 4. Dyslipidemia: -- High intensity statin therapy. 5. Bilateral Otitis Externa: -- Continue Cipro otic solution. Continued [facility] stay due to: multiple IV medications needed, other (Cardiac Cath in a.m.) Discharge planning: home (Kevin Olivares,P.A.) Attending Attestation: Pt seen/examined, chart reviewed, care plan d/w ROSA Olivares. I agree w/ the tomlinson components of his progress note. Pt w/o cp, sob, betancourt, telemetry abnormalities, abd pain, nausea, emesis. Feels "really good" today. VSS no fever FSBS <225 gen - nad neck - no JVD heart - RRR, s1, s2 lungs - CTA b/l abd - soft, NT, ND, BS+ ext - no edema labs - peak troponin 20 bmp nl A/P: 1. NSTEMI with no complicating acute CHF; echo normal 2. probable essential HTN 3. uncontrolled T2DM 4. b/l otitis externa 5. hyperlipidemia add lantus 10 units daily increase carb coverage heparin drip asa, BB, ERNESTO cardiac cath in Am by Dr. Ed corral HC drops for ears b/l x 10 days check lipids, a1c, and tsh in am Eduardo Negrete MD (Eduardo Negrete MD)
[2016-09-10] MEDS: INSULIN GLARGINE SOLOSTAR 100 UNITS/ML 3 ML PEN SC SCH (09:35)
[2016-09-10] MEDS ORDERED: PERFLUTREN LIPID MICROSPHERE (DEFINITY) IV ONE (10:18)
[2016-09-10 11:59] VITALS: BP 149/73; PULSE 77; TEMP 36.8; O2SAT 95
--- NOTE | 2016-09-10 12:31 | ECHOCARDIOGRAM REPORT ---
*NOTICE TO RECEIVING DEMOCRAT AGENCY This information is strictly Confidential and protected under [place] law. [place] law prohibits you from making any further disclosure of this information unless further disclosure is expressly permitted by the written consent of the person to whom it pertains or is authorized by law. A general authorization for the release of medical or other information is not sufficient for this purpose. Hospital accepts no responsibility if the information is made available to any other person, INCLUDING THE PATIENT. Interpretation Summary * Name: VINCENT VALENCIA JR Study Date: 09/10/2016 09:35 AM BP: 134/79 mmHg * Patient Location: C.2T\S\S242\S\2 HR: 68 * : 1950 (M/d/yyyy) Gender: Male Height: 63 in * Age: 66 yrs Ethnicity: [place] Weight: 153 lb * Ordering Physician: Kevin Olivares * Referring Physician: Self, Referred * Performed By: Fernie Noel RDCS * * Reason For Study: NSTEMI * BSA: 1.7 m2 * Normal biventricular systolic function. * Normal left ventricular wall motion. * Left ventricular diastolic dysfunction. * Normal chamber dimensions. * Trace to mild tricuspid regurgitation. * Trace pulmonic and mitral regurgitation. * -- Conclusions -- * Aortic valve sclerosis mild, without significant aortic valvular stenosis. Procedure Details * A complete two-dimensional transthoracic echocardiogram was performed (2D, M-mode, Doppler and color flow Doppler). * The study was technically adequate. Left Ventricle * The left ventricle is normal in size. * There is normal left ventricular wall thickness. * A full diastolic examination was done with clinical findings of Class I diastolic dysfunction. * Left ventricular systolic function is normal. * Ejection Fraction = 55-60%. * The left ventricular wall motion is normal. Right Ventricle * The right ventricle is normal in size and function. * The right ventricular systolic function is normal as assessed by tricuspid annular plane systolic excursion (TAPSE) (normal >1.5 cm). Atria * The left atrial size is normal. * Right atrial size is normal. * No ASD detected; PFO is not assessed. Mitral Valve * The mitral valve is normal. * There is no mitral valve stenosis. * There is trace mitral regurgitation. Tricuspid Valve * The tricuspid valve is normal. * There is no tricuspid stenosis. * Right ventricular systolic pressure is normal. * Trace to mild tricuspid regurgitation. Aortic Valve * The aortic valve is trileaflet. * The aortic valve opens well. * Aortic valve sclerosis mild, without significant aortic valvular stenosis. * Aortic stenosis is absent. * No aortic regurgitation is present. Pulmonic Valve * The pulmonic valve is not well seen, but is grossly normal. * There is no pulmonic valvular stenosis. * Trace pulmonic valvular regurgitation. Great Vessels * The aortic root is normal size. Pericardium/Pleural * There is no pericardial effusion. Great Vessels * Normal inferior vena cava diameter and respiratory variation suggests normal central venous pressure. MMode 2D Measurements and Calculations IVSd 0.84 cm IVSs 1.1 cm LVIDd 4.0 cm LVIDs 3.1 cm LVPWd 0.95 cm LVPWs 1.1 cm IVS/LVPW 0.88 FS 22.4 % EDV(Teich) 68.0 ml ESV(Teich) 36.9 ml EF(Teich) 45.7 % EDV(cubed) 61.7 ml ESV(cubed) 28.8 ml EF(cubed) 53.3 % % IVS thick 28.6 % % LVPW thick 18.1 % LV mass(C)d 106.6 grams LV mass(C)dI 61.8 grams/m\S\2 LV mass(C)s 98.1 grams LV mass(C)sI 56.8 grams/m\S\2 SV(Teich) 31.1 ml SI(Teich) 18.0 ml/m\S\2 SV(cubed) 32.9 ml SI(cubed) 19.0 ml/m\S\2 EPSS 0.61 cm Ao root diam 3.2 cm Ao root area 8.1 cm\S\2 ACS 1.9 cm LA dimension 3.6 cm asc Aorta Diam 3.2 cm LA/Ao 1.1 LVOT diam 2.0 cm LVOT area 3.1 cm\S\2 LVAd ap4 25.8 cm\S\2 LVLd ap4 8.3 cm EDV(MOD-sp4) 67.2 ml LVAs ap4 14.9 cm\S\2 LVLs ap4 6.9 cm ESV(MOD-sp4) 30.3 ml EF(MOD-sp4) 54.9 % LVAd ap2 26.2 cm\S\2 LVLd ap2 9.4 cm EDV(MOD-sp2) 60.5 ml LVAs ap2 14.6 cm\S\2 LVLs ap2 7.4 cm ESV(MOD-sp2) 25.5 ml EF(MOD-sp2) 57.9 % SV(MOD-sp4) 36.9 ml SI(MOD-sp4) 21.4 ml/m\S\2 SV(MOD-sp2) 35.0 ml SI(MOD-sp2) 20.3 ml/m\S\2 Doppler Measurements and Calculations MV E max jb 61.6 cm/sec MV A max jb 85.4 cm/sec MV E/A 0.72 MV dec time 0.21 sec Ao V2 max 117.3 cm/sec Ao max PG 5.5 mmHg Ao max PG (full) 2.3 mmHg ARTIE(V,A) 2.4 cm\S\2 ARTIE(V,D) 2.4 cm\S\2 LV V1 max PG 3.2 mmHg LV V1 max 90.0 cm/sec PA V2 max 88.6 cm/sec PA max PG 3.1 mmHg PI end-d jb 87.6 cm/sec TR max jb 241.8 cm/sec
[2016-09-10 15:52] VITALS: BP 146/83; PULSE 79; TEMP 36.8; O2SAT 98
--- NOTE | 2016-09-10 16:13 | Cardiology Consultation ---
Cardiology Consultation Date of Service Sep 10, 2016. Cardiology Consultation The patient was seen in Cardiology consultation by me this morning. This was requested by Mr. Kevin Olivares and Dr. Eduardo Negrete. The patient was admitted on September [address] elevation myocardial infarction. He denies any prior history of heart disease. Does have a history of diabetes mellitus type 2, dyslipidemia, and probable hypertension. He states to me that 1 week ago while mowing the grass he had retrosternal aching and tightness which lasted for 20-30 minutes. Resolution with rest. Since then he has been experiencing intermittent similar but less than test chest discomfort which could occur at rest. It was associated with belching. No radiation of the discomfort. Yesterday morning he developed similar discomfort. It persisted. It was associated with nausea, vomiting, and dyspnea. No associated diaphoresis. No palpitations, lightheadedness, or syncope. Because of this discomfort he came to the hospital for evaluation. He was admitted through the emergency department to the telemetry unit. He states he had a very mild residual lower retrosternal chest discomfort following admission until last evening. Since then no further complaints of any chest discomfort. Today he feels well. No discomfort in his chest or elsewhere walking in his room to the bathroom. No dyspnea at rest or with his walking activities in the room. No orthopnea or PND. No palpitations, lightheadedness, syncope, or peripheral edema. No GI complaints. No symptoms of bleeding. No urinary complaints. No pulmonary complaints. No cerebrovascular or peripheral vascular complaints. Chronic paresthesias of the feet. Paresthesias of the tip of his tongue. This is a chronic complaint. Currently he has external otitis. No other HEENT complaints. No skin rash complaints. No myalgias or muscle weakness. Past medical and surgical history 1. Dyslipidemia. 2. Type 2 diabetes mellitus. 3. Probable hypertension. 4. Status post appendectomy 5. Status post tonsillectomy 6. Status post removal of cyst from tongue. 7. Status post removal of cyst from left arm. Social history: The patient works at the [employer]. He is and lives with his . This is his 2nd marriage. He has children and stepchildren. Remote history of cigarette smoking. He stopped smoking cigarettes approximately 40 years ago. Allergies: No known drug allergies. He is allergic to bee stings. Current medications: Aspirin 81 milligrams daily, lisinopril 5 milligrams daily , Lantus insulin 10 units subcu daily a.m., Cipro otic suspension 2 drops b.i.d. bilaterally, intravenous heparin per weight based protocol, sliding- scale insulin, nitroglycerin ointment 1 inch q.6 hours, atorvastatin 80 milligrams daily, metoprolol tartrate 25 milligrams b.i.d., and several p.r.n. medications. On admission the patient was on metformin 1000 milligrams b.i.d.. Family history: History of CAD and infarction in his father. Mother with history of heart failure. Family history of diabetes mellitus in his sister. Review of systems: As above. Exam: Vital signs this morning revealed a oral temperature 36.7, pulse 72, blood pressure 134/79. Pulse oximetry room air 94 percent. Monitor history since admission reviewed by me. Sinus rhythm, rare premature ventricular beats. General appearance today shows him to be in no distress. Head: Normal. Eyes : Pupils equal and round. Anicteric. Conjunctiva normal. No xanthelasma. Neck: No jugular venous distention. Carotids 2/2 bilaterally. Normal upstroke. No bruits. Lungs: Normal respiratory effort. Clear. No rales or wheezes. Heart: PMI normal. No lifts or heaves. Regular rate and rhythm. S1- S2 normal. No S3 or S4. No murmur or rub. Abdomen: Soft. Nontender. No palpable masses or organomegaly. No bruits. Normal bowel sounds. Umbilical hernia is present. Extremities: No cyanosis or clubbing. No pretibial edema. No calf tenderness. Pulses: Radial, femoral, dorsalis pedis, posterior tibial pulses strongly palpable bilaterally. Neurologic: Alert and oriented x3. Motor grossly intact. Psychiatric: Affect is normal. Skin: No rashes. Data: Chest x-ray reviewed by me. No evidence of heart failure or infiltrate. Electrocardiograms on this admission reviewed interpreted by me. Sinus rhythm. No ST or T-wave evidence of myocardial ischemia or injury. Electrocardiogram this morning with sinus rhythm with sinus arrhythmia. Rate 73 beats per minute. Normal axis and intervals. Echocardiogram today reviewed and interpreted by me. Normal left ventricular wall motion. Normal left ventricular systolic function. LV ejection fraction 55 -60 percent. Class 1 LV diastolic dysfunction. Trace mitral and mild tricuspid regurgitation. Normal estimated right ventricular systolic pressure. Labs: Labs today with hemoglobin 15.6, hematocrit 45.7, WBC 9.97, platelet count 269. PTT 55.3. Baseline INR was 0.9. Baseline PTT was 25.7. Metabolic profile today with sodium 135, potassium 3.8, chloride 104, carbon dioxide 24, BUN 13, creatinine 0.75, random glucose 197. Peak CK total was 697 yesterday evening. Peak CK-MB was 65.3 yesterday afternoon. Peak troponin I 20.200. Assessment: 1. Admission with non ST elevation myocardial infarction. One- week history of unstable anginal symptoms. Electrocardiogram without any diagnostic changes of myocardial ischemia or injury. Echocardiogram today without any segmental wall motion abnormalities of the left ventricle. He does have significant elevations in his CK MB and troponin I. No current anginal symptoms. 2. No signs or symptoms of congestive heart failure. Normal LV systolic function on echo today. 3. No significant valvular heart disease. 4. Multiple CAD risk factors including dyslipidemia, hypertension, diabetes mellitus, and remote smoking history. There is also a family history of coronary artery disease. 5. No cerebrovascular or peripheral vascular complaints. Plan: 1. Continue aspirin and heparin. 2. Continue maximum dose of atorvastatin. 3. Continue lisinopril and metoprolol. Titrate dose upward to control heart rate and blood pressure. 4. Cardiac catheterization to assess for evidence of significant underlying coronary artery disease. The procedure, risks, benefits, and alternatives of cardiac catheterization and coronary intervention were extensively discussed with the patient by me. He consents to the procedure. Will attempt a right radial arterial access. 5. Further recommendations will be based upon results of the cardiac catheterization. Thank you for asking me to see this patient in Cardiology consultation.
[2016-09-10 19:39] VITALS: BP 123/76; PULSE 81; TEMP 36.8; O2SAT 93
[2016-09-10 23:15] VITALS: BP 102/61; PULSE 66; TEMP 36.8; O2SAT 96
[2016-09-11] VITALS (12 sets, daily range): BP systolic 107–150; BP diastolic 64–82; PULSE 71–97; TEMP 36.6–36.9; O2SAT 93–96
[2016-09-11] MEDS: NITROGLYCERIN OINT 2% 1GM PACKET EXT SCH ×3 (04:00→15:57)
[2016-09-11] MEDS: INSULIN ASPART 100 UNITS/ML 3 ML PEN SC SCH ×2 (07:00→12:10)
[2016-09-11 07:37] LABS: BASO % 0.6 %; BASO ABS # 0.05 K/uL (0-0.2); COMPLETE YES; EOS % 4.6 %; HEMATOCRIT 46.1 % (42-52); IG% 0.4 %; LYMPH % 22.4 %; LYMPH ABS # 1.79 K/uL (1.2-3.4); MEAN CELL VOLUME 87.6 fL (80-100); MEAN CORPUSCULAR HEMOGLOBIN 29.8 pg (25-34); MEAN CORPUSCULAR HGB CONC 34.1 g/dl (32-36); MEAN PLATELET VOLUME 9.6 fL (7.4-10.4); MONO % 8.4 %; NEUT % 63.6 %; PLATELET COUNT 246 K/uL (130-400); RED BLOOD COUNT 5.26 M/uL (4.7-6.1); WHITE BLOOD COUNT 7.99 K/uL (4.8-10.8)
[2016-09-11 07:53] LABS: PARTIAL THROMBOPLASTIN RATIO 2.1
[2016-09-11 08:03] LABS: BUN/CREATININE RATIO 23.2 (10-20); CALCIUM 8.8 mg/dl (8.5-10.1); CREATININE 0.72 mg/dl (0.60-1.40); POTASSIUM 3.9 mmol/L (3.5-5.1)
[2016-09-11] MEDS ORDERED: NiCARDipine HCL INJ 2.5 MG/ML 10 ML AMP ONE (08:10)
[2016-09-11] MEDS ORDERED: HEPARIN SOD (PORCINE) 1000 UNIT/ML 10 ML VIAL ONE (08:11)
--- NOTE | 2016-09-11 08:11 | Procedure Note ---
Pre-Mod Sedation Assessment General Date of Moderate Sedation: Sep 11, 2016. Vital Signs: Vital Signs Past 12 Hours Date Time Temp Pulse Resp B/P (MAP) Pulse Ox O2 Delivery O2 Flow Rate FiO2 09/11/16 04:00 Room Air 09/11/16 03:41 36.9 73 18 107/64 (78) 95 Room Air 09/11/16 00:00 Room Air 09/10/16 23:15 36.8 66 16 102/61 (75) 96 Room Air Review Cardiovascular: regular rate, rhythm, no edema, no gallop, no JVD, no murmur, normal peripheral pulses Abdomen: normal bowel sounds, non tender, no organomegaly Lungs: lungs clear Pre-Sedation Airway Assessment Oral Cavity: WNL Able to Visualize Vocal Cords: No Short Thick Neck: No Hx of Sleep Apnea: No Smoking Status: Former Smoker Mallampati Classification: Class III Procedure Planning Contraindications-for Mod Sed: None Yes Notes The planned sedation has been discussed with the patient and consent obtained. I have identified the patient, determined the appropriateness of sedation and have assessed the patient immediately prior to the procedure. All medicine(s) and interventions are by my order.
[2016-09-11] MEDS ORDERED: MIDAZOLAM HCL 1 MG/ML 2ML VIAL ONE (08:12)
[2016-09-11] MEDS ORDERED: NITROGLYCERIN/D5W 100MCG/ML 20ML SYR ONE (08:12)
[2016-09-11] MEDS ORDERED: FENTANYL CITRATE INJ 50 MCG/1 ML 2 ML VIAL ONE (08:12)
[2016-09-11 08:13] LABS: CHOLESTEROL/HDL RATIO 2.9; THYROID STIMULATING HORMONE 4.69 uIu/ml (0.300-4.500)
--- NOTE | 2016-09-11 08:42 | Family Medicine Progress Note ---
Progress Note Date of Service Sep 11, 2016. Subjective Pt evaluation today including: conversation w/ patient, conversation w/ family , physical exam Voiding: no voiding problems, no incontinence Pt seen prior to cath. Denied any complaints. Has been NPO overnight. No recurrence of chest pain. Constitutional: No fever, No chills Respiratory: No cough Cardiovascular: No chest pain All Other Systems: Reviewed and Negative Medications Current Inpatient Medications Medications (Trade) Dose Ordered Sig/Pako Route Start Time Stop Time Status Last Admin Dose Admin Acetaminophen (Tylenol Tab) 650 mg Q4H PRN PO 09/09/16 08:15 10/09/16 08:14 Al Hydrox/Mg Hydrox/Simethicone (Maalox Max Susp) 15 ml Q4H PRN PO 09/09/16 08:15 10/09/16 08:14 Magnesium Hydroxide (Milk Of Magnesia Susp) 30 ml Q12H PRN PO 09/09/16 08:15 10/09/16 08:14 Zolpidem Tartrate (Ambien Tab) 5 mg HSZ PRN PO 09/09/16 08:15 10/09/16 08:14 Ondansetron HCl (Zofran Inj) 4 mg Q6H PRN IV 09/09/16 08:15 10/09/16 08:14 Nitroglycerin (Nitrostat Tab) 0.4 mg UD PRN SL 09/09/16 08:15 10/09/16 08:14 Nitroglycerin (Nitroglycerin 2% Oint) 1 inch Q6H EXT 09/09/16 10:00 10/09/16 08:14 09/10/16 09:32 1 INCH Morphine Sulfate (MoRPHine SULFATE INJ) 2 mg Q30M PRN IV 09/09/16 08:15 09/23/16 08:14 Aspirin (Ecotrin Tab) 81 mg QAM PO 09/10/16 09:00 10/10/16 08:59 09/10/16 08:20 81 MG Polyethylene (Miralax Powder Packet) 17 gm DAILY PRN PO 09/09/16 08:15 10/09/16 08:14 Atorvastatin Calcium (Lipitor Tab) 80 mg QAM PO 09/09/16 09:00 10/09/16 08:59 09/10/16 08:21 80 MG Metoprolol Tartrate (Lopressor Tab) 25 mg BID PO 09/09/16 09:00 10/09/16 08:59 09/10/16 19:58 25 MG Insulin Aspart (novoLOG ASPART) SLIDING SCALE G... ACHS SC 09/09/16 11:00 10/09/16 10:59 09/10/16 17:58 7 UNITS Lisinopril (Zestril Tab) 5 mg QAM PO 09/10/16 09:00 10/10/16 08:59 09/10/16 08:20 5 MG Glucose (Glucose 40% Gel) 15-30 GRAMS 15 GRAMS... UD PRN PO 09/09/16 09:30 10/09/16 09:29 Glucose (Glucose Chew Tab) 4-8 Tablets 4 Tabl... UD PRN PO 09/09/16 09:30 10/09/16 09:29 Dextrose (Dextrose 50% 50ML Syringe) 25-50ML OF 50% DW IV FOR... UD PRN IV 09/09/16 09:30 10/09/16 09:29 Glucagon (Glucagon Inj) 1 mg UD PRN SQ 09/09/16 09:30 10/09/16 09:29 Heparin Sodium/ Dextrose 500 ml @ 26 mls/hr [id number] PRN IV 09/09/16 12:30 10/09/16 12:29 09/10/16 23:45 26 MLS/HR Ciprofloxacin/ Hydrocortisone (Cipro Hc Otic Susp) 2 drops BID OT 09/09/16 21:00 10/09/16 20:59 09/10/16 19:58 2 DROPS Insulin Glargine (Lantus Solostar Pen) 10 units QAM SC 09/10/16 09:00 10/10/16 08:59 09/10/16 09:35 10 UNITS Objective Vital Signs Date Time Temp Pulse Resp B/P (MAP) Pulse Ox O2 Delivery O2 Flow Rate FiO2 09/11/16 04:00 Room Air 09/11/16 03:41 36.9 73 18 107/64 (78) 95 Room Air 09/11/16 00:00 Room Air 09/10/16 23:15 36.8 66 16 102/61 (75) 96 Room Air 09/10/16 20:00 Room Air 09/10/16 19:39 36.8 81 18 123/76 (92) 93 Room Air 09/10/16 16:00 Room Air 09/10/16 15:52 36.8 79 20 146/83 (104) 98 Room Air 09/10/16 12:00 Room Air 09/10/16 11:59 36.8 77 20 149/73 (98) 95 Room Air Physical Exam General Appearance: WD/WN, no apparent distress Eyes: normal inspection, PERRL ENT: hearing grossly normal Neck: supple, no JVD Respiratory/Chest: lungs clear, normal breath sounds, no respiratory distress Cardiovascular: regular rate, rhythm, no murmur Abdomen: normal bowel sounds, non tender, soft Extremities: non-tender, no pedal edema Neurologic/Psychiatric: alert, normal mood/affect, oriented x 3 Skin: no rash Laboratory Results Last 24 Hours Test 09/10/16 11:53 09/10/16 16:39 09/10/16 20:43 09/11/16 06:58 Bedside Glucose 204 mg/dl 124 mg/dl 124 mg/dl 181 mg/dl Test 09/11/16 07:15 White Blood Count 7.99 K/uL Red Blood Count 5.26 M/uL Hemoglobin 15.7 g/dL Hematocrit 46.1 % Mean Corpuscular Volume 87.6 fL Mean Corpuscular Hemoglobin 29.8 pg Mean Corpuscular Hemoglobin Concent 34.1 g/dl Platelet Count 246 K/uL Mean Platelet Volume 9.6 fL Neutrophils (%) (Auto) 63.6 % Lymphocytes (%) (Auto) 22.4 % Monocytes (%) (Auto) 8.4 % Eosinophils (%) (Auto) 4.6 % Basophils (%) (Auto) 0.6 % Neutrophils # (Auto) 5.08 K/uL Lymphocytes # (Auto) 1.79 K/uL Monocytes # (Auto) 0.67 K/uL Eosinophils # (Auto) 0.37 K/uL Basophils # (Auto) 0.05 K/uL RDW Standard Deviation 41.4 fL RDW Coefficient of Variation 13.1 % Immature Granulocyte % (Auto) 0.4 % Immature Granulocyte # (Auto) 0.03 K/uL Activated Partial Thromboplast Time 54.5 SECONDS Partial Thromboplastin Ratio 2.1 Sodium Level 135 mmol/L Potassium Level 3.9 mmol/L Chloride Level 104 mmol/L Carbon Dioxide Level 23 mmol/L Anion Gap 8.0 mmol/L Blood Urea Nitrogen 17 mg/dl Creatinine 0.72 mg/dl Est Creatinine Clear Calc Drug Dose 90.8 ml/min Estimated GFR () 114.3 Estimated GFR (Non- 98.6 BUN/Creatinine Ratio 23.2 Random Glucose 170 mg/dl Calcium Level 8.8 mg/dl Triglycerides Level 127 mg/dl Cholesterol Level 170 mg/dl HDL Cholesterol 58 mg/dl LDL Cholesterol, Calculated 87 mg/dl VLDL Cholesterol, Calculated 25 mg/dl Cholesterol/HDL Ratio 2.9 Thyroid Stimulating Hormone (TSH) 4.690 uIu/ml Assessment and Plan 66 yo diabetic M with NSTEMI, for cardiac cath this AM with Dr Ward ACS / NSTEMI Remains on heparin drip until procedure Remains on Aspirin 81mg, ERNESTO-I (Lisinopril 5mg daily), Statin (Lipitor 80mg qHS) , Beta michele (Lopressor 25mg BID) Nitropaste 1 inch q 6h Troponin peaked at 20, is 11 this AM Echo: * Normal biventricular systolic function. * Normal left ventricular wall motion. * Left ventricular diastolic dysfunction. * Normal chamber dimensions. * Trace to mild tricuspid regurgitation. * Trace pulmonic and mitral regurgitation. * -- Conclusions -- * Aortic valve sclerosis mild, without significant aortic valvular stenosis. * EF 55-60% Type 2 DM: Glc 124-180 Remains on Lantus with insulin sliding scale HbA1c pending Hypertension: Remains on ERNESTO-I and Beta michele Dyslipidemia: Remains on high intensity statin therapy. Bilateral Otitis Externa: Continue Cipro otic solution. Dispo: Remains on Tele until procedure VTE: heparin drip Code status: FULL Resident Tracking Resident Involvement: Resident Care Provided Care Provided: Adult Hospital Medicine
[2016-09-11 08:57] LABS: ESTIMATED AVERAGE GLUCOSE 203 mg/dl; HA1C FLAG Normal (Normal)
[2016-09-11] MEDS ORDERED: SODIUM CHLORIDE 0.9% 1000ML 1,000 ML IV SCH (09:37)
[2016-09-11] MEDS ORDERED: SODIUM CHLORIDE 0.9% 1000ML 250 ML IV PRN (09:37)
--- NOTE | 2016-09-11 09:42 | Procedure Note ---
Post-Mod Sedation Assessment General Date of Moderate Sedation Sep 11, 2016. Vital Signs: Vital Signs Past 12 Hours Date Time Temp Pulse Resp B/P (MAP) Pulse Ox O2 Delivery O2 Flow Rate FiO2 09/11/16 09:32 75 16 102/71 (81) 96 Room Air 09/11/16 09:17 78 16 125/73 (90) 98 Mask 3 09/11/16 04:00 Room Air 09/11/16 03:41 36.9 73 18 107/64 (78) 95 Room Air 09/11/16 00:00 Room Air 09/10/16 23:15 36.8 66 16 102/61 (75) 96 Room Air Review - Discharge Criteria Vital Signs Stable: Yes Alert/Oriented/Conversant: Yes Returned to Baseline Mental St: Yes Nausea Absent/Minimal: Yes Pain/Discomfort/Absent/Minimal: Yes Normal/Baseline Respirations: Yes Active Bleeding?: No Pt Received D/C Instructions: N/A Prescriptions Given: None Specific Proced. D/C Criteria Distal Pulses Present (Cardiac: Yes Groin site assessed-Card Cath: N/A Voided Prior To Discharge: N/A Discharged Patients Adult Escort/Transportation: N/A
[2016-09-11] MEDS ORDERED: ONDANSETRON INJ 2 MG/ML 2 ML VIAL IV PRN (09:45)
[2016-09-11] MEDS ORDERED: ACETAMINOPHEN 325 MG TAB PO PRN (09:45)
[2016-09-11] MEDS ORDERED: ATROPINE SULFATE 0.1 MG/ML 5ML SYR IV PRN (09:45)
--- NOTE | 2016-09-11 10:12 | Cardiac Catheterization ---
Procedure Note Procedure Date Sep 11, 2016. Pre-Procedure Diagnosis Non STEMI AUC Score 8 Post-Procedure Diagnosis Severe CAD, Normal Intracardiac Pressures Procedure(s) Performed Coronary Angiography, Left Heart Cath, LV Angiography In Home Tutor Dr. Ward Open Tenter Operator(s) JUVENAL Moses Estimated Blood Loss 20 Medication(s) Fentanyl, Heparin, Nicardipine, Versed, Lidocaine 1% Summary of Findings Clinical indications: Non STEMI. Electrocardiogram without diagnostic ischemic changes. Echocardiogram with normal LV wall motion and systolic function. Peak troponin I 20.2. CAD risk factors include hypertension, dyslipidemia, and type 2 diabetes mellitus. Remote history of cigarette smoking. Catheterization site: 6 FR Slender Glidesheath right radial artery Catheters: 5 Fr JR 4,JL3.5,JL4, and pigtail catheters. 5 Fr brachial 3.5 diagnostic catheter was 1st used in attempts at coronary angiography. This catheter would not cannulate either coronary artery. Hemostasis: Terumo TR band. Complications: none. Findings: Fluoroscopy revealed extensive calcifications in the proximal to mid LAD. RCA also had significant calcifications. The coronary circulation was right dominant. The left main coronary artery was a very short and large caliber vessel without obstructive disease. Gave rise to medium to large caliber left anterior descending and left circumflex coronary arteries. The ostium of the LAD and very proximal LAD had a 40 percent stenosis. The proximal LAD then had diffuse atherosclerotic disease with 10-20 percent luminal diameter narrowing. The LAD then gave rise to a very small caliber 1st diagonal artery which had a 70 percent ostial stenosis. After this 1st diagonal the mid LAD had an eccentric 80-90 percent stenosis. The LAD then gave rise to a small caliber 2nd diagonal artery. This vessel had ostial, proximal, and mid segment stenoses of 30 percent. Following the 2nd diagonal the mid LAD had a 50 percent stenosis. The mid and distal LAD were of small caliber. The mid LAD then had diffuse mild atherosclerotic disease with 10-30 percent luminal diameter narrowing. The early distal LAD had a 50 percent stenosis. The latter distal LAD had a 30 percent stenosis. Distal LAD wraps around the apex of the heart. The proximal left circumflex had diffuse mild atherosclerotic disease with 10-20 percent stenoses. It then gave rise to a long bifurcating medium caliber marginal artery. Ostium of this marginal in its proximal segment had diffuse very mild atherosclerotic disease with 0-10 percent luminal diameter narrowing. The mid segment of the marginal had 20-30 percent stenoses. The distal marginal then bifurcated into 2 small caliber branches. The superior branch had a 95 percent stenosis. BARRY 2 flow was present in the remainder of this branch. The inferior branch had an ostial 30 percent stenosis and proximal 50 percent stenosis. Both of the branches of the marginal themselves bifurcated. The right coronary was a small to medium caliber vessel. Proximal 0-10 percent stenosis. Mid 10-20 percent stenosis. Distal RCA was normal. The distal RCA gave rise to a highly arising very small caliber posterior descending artery type branch. This vessel had no obstructive disease. The RCA gave then rise to a very small caliber 1st posterolateral artery which was normal. It then gave rise to a small caliber 2nd posterolateral artery which had diffuse 10-20 percent stenoses in its mid segment. Left ventricular angiography performed from the 30 degree right anterior oblique projection with a hand injection of contrast dye revealed all LV segments contract normally. No mitral regurgitation. LV ejection fraction 65 percent. Left ventricular angiography performed from the 45 degree CHINESE projection with a hand injection of contrast dye revealed the septum, apex, and posterolateral segments to contract normally. Plan: The patient has been asymptomatic since the 1st night of his admission. He had had prolonged mild chest discomfort lasting approximately 12 hours. It then resolved. Suspect that there is no significant viable myocardium in the distribution of the superior branch of the left circumflex marginal. Is most likely the infarct-related vessel based on the lack of electrocardiographic changes of myocardial ischemia or injury. The LAD stenosis would be of increased risk for percutaneous coronary intervention. Vessel is extensively calcified. If intervention were performed to the LAD it might require a debulking procedure. At this time will treat patient with maximally tolerated medical therapy for his underlying coronary artery disease. Also maximal CAD risk factor modification therapy. If he has anginal symptoms refractory to medical therapy could then consider PCI to the LAD. As it might require a debulking procedure it would be best that this procedure be performed at a tertiary cardiac center. Hemodynamics Rest Ao: 115/62/85 mm Hg Final Ao: 118/65/89 mm Hg LV: 108/10 mm Hg Recommendations Medical therapy and/or Counseling Specimens None Radiation Exposure (mGy) 2165 Contrast (mls) 110 ml Visipaque Fluids (cc crystalloids) 104 Drains none Anesthesia Intravenous versed,fentanyl. Lidocaine 1 % for local anesthesia. Procedural Complication(s) None Disposition PCU ACC Data Cardiac Status Clinical evaluation leading to the procedure CAD Presntation: Non STEMI Anginal Classification: CCS IV Heart Failure: No Cardiogenic Shock w/in 24Hrs: No Cardiac Arrest w/in 24Hrs: No Imaging studies past 6 months: Yes Stress studies past 6 months: No Standard Exercise Stress Test: No Stress Echocardiogram: No Stress Testing w/SPECT MPI: No Cardiac CTA: No Coronary Anatomy Dominant: Right Left Main (% Stenosis): Normal LAD (% Stenosis): Proximal (40), Mid (80-90,10-30), Distal (50,30) D1 (% Stenosis): Ostial (70) D2 (% Stenosis): Ostial (30), Proximal (30), Mid (30) Circumflex (% Stenosis): Proximal (10-20) OM1 (% Stenosis): Ostial (0-10), Proximal (0-10), Mid (20-30), Distal (95) RCA (% Stenosis): Proximal (0-10), Mid (10-20) R PDA (% Stenosis): Normal R PL1 (% Stenosis): Normal R PL2 (% Stenosis): Mid (10-20) Left Ventricular Angiography EF (%): 65 Wall Motion: Inferior (Normal), Apical (Normal), Anterior (Normal) Mitral Regurgitation: None Diagnostic Physician's Name: Blake Wrad M.D. Status: Elective Closure Device Percutaneous Entry Location: Radial Closure Device: Radial Band Recommendations: Medical therapy and/or Counseling
[2016-09-11] MEDS: CIPRO 0.2%/HYDROCORTISONE 1% OTIC SUSP 10 ML BTL OT SCH (10:18)
[2016-09-11] MEDS: ASPIRIN 81 MG ECTAB PO SCH (10:18)
[2016-09-11] MEDS: LISINOPRIL 5 MG TAB PO SCH (10:18)
[2016-09-11] MEDS: ATORVASTATIN 40 MG TAB PO SCH (10:18)
[2016-09-11] MEDS: INSULIN GLARGINE SOLOSTAR 100 UNITS/ML 3 ML PEN SC SCH (10:22)
[2016-09-11] MEDS ORDERED: CPROT OT (15:54)
[2016-09-11] MEDS ORDERED: METO50TA16 PO (15:54)
[2016-09-11] MEDS ORDERED: ASPEC81 PO (15:54)
[2016-09-11] MEDS ORDERED: NTRSLP4 SL (15:54)
[2016-09-11] MEDS ORDERED: ATOR-26 PO ×2 (15:54→16:02)
[2016-09-11] MEDS ORDERED: LSN5 PO (15:54)
--- NOTE | 2016-09-11 15:58 | Discharge Instructions ---
Discharge Instructions Date of Service Sep 11, 2016. Admission Reason for Admission: Acs, Dyslipidemia, Otitis Externa, Type 2 Diabetes Discharge Discharge Diagnosis / Problem: LAD blockage Discharge Goals Goal(s): Improve disease control Activity Recommendations Activity Limitations: per Instructions/Follow-up section You have been started on new medications for your heart, these include: - Aspirin, 81 mg daily - this is a blood thinner and prevents future heart attacks - Atorvastatin, 80mg daily - this is for your cholesterol, this is incredibly important in preventing further heart attacks, and keeping the plaques in your heart vessels stable, preventing a life-threatening heart attack - Metoprolol 50mg twice a day - this is for your blood pressure, and will also slow down your heart rate. Please check your blood pressure at home over the next few weeks and follow up with your PCP next week as well. - Lisinopril 5mg daily - this is a blood pressure medication, and protects your heart and your kidney. - Nitro tablets - these are NEEDED, if you have any chest pain, you should take one right away. You should keep these with you at all times. If you have any further chest pain, please seek medical attention. Follow up with Dr Ward in the next week. . Instructions / Follow-Up Instructions / Follow-Up Follow up with Dr Ward in the next week, as arranged. Follow up with your PCP in the next week as well. Current Hospital Diet Patient's current hospital diet: AHA Diet (Heart Healthy), Diabetes Type 2 Diet Discharge Diet Recommended Diet: AHA Diet (Heart Healthy), Diabetes Type 2 Diet Procedures Procedures Performed: Cardiac catheterization 09/11/16 Pending Studies Studies pending at discharge: no Laboratory Results Hemoglobin A1c Test 09/11/16 07:15 Range/Units Estimated Average Glucose 203 mg/dl Hemoglobin A1c 8.7 H 4.5-5.6 % Lipid Panel Test 09/11/16 07:15 Range/Units Triglycerides Level 127 0-150 mg/dl Cholesterol Level 170 0-200 mg/dl HDL Cholesterol 58 mg/dl Cholesterol/HDL Ratio 2.9 LDL Cholesterol, Calculated 87 mg/dl Medical Emergencies . Who to Call and When: Medical Emergencies: If at any time you feel your situation is an emergency, please call 911 immediately. . Non-Emergent Contact Non-Emergency issues call your: Primary Care Provider . . "Provider Documentation" section prepared by Debbie Nash. . Contact Lens Edge Buffer Recommendations Contact Lens Edge Buffer Recommendations Dr Ward recommends you take the medication prescribed for your heart disease - including the statin, aspirin, Lisinopril, Metoprolol. VTE Core Measure Inpt VTE Proph given/why not?: Other Anticoagulation (Heparin drip), T.E.D. Stockings
--- NOTE | 2016-09-11 16:08 | Discharge Summary ---
Discharge Summary Date of Service Sep 11, 2016. (Debbie Nash MD) Discharge Summary Admission Date: Sep 09, 2016 at 08:21 Discharge Date: Sep 11, 2016 Discharge Disposition: Home Principal Diagnosis: NSTEMI, LAD occlusion Immunizations: Have You Had Influenza Vaccine: Unknown History of Tetanus Vaccine?: Unknown History of Pneumococcal: Unknown History of Hepatitis B Vaccine: Unknown Procedures: Cardiac cath 09/11/16 Clinical indications: Non STEMI Catheterization site: 6 FR Slender Glidesheath right radial artery Catheters: 5 Fr JR 4,JL3.5,JL4, and pigtail catheters Hemostasis: Terumo TR band. Complications: none Plan: Medical therapy. If anginal symptoms refractory to medical therapy consider PCI to LAD. May need a debulking procedure ( atherectomy) . Suspect the distal marginal supplies no significant viable myocardium. Coronary Anatomy Dominant: Right Left Main (% Stenosis): Normal LAD (% Stenosis): Proximal (40), Mid (80-90,10-30), Distal (50,30) D1 (% Stenosis): Ostial (70) D2 (% Stenosis): Ostial (30), Proximal (30), Mid (30) Circumflex (% Stenosis): Proximal (10-20) OM1 (% Stenosis): Ostial (0-10), Proximal (0-10), Mid (20-30), Distal (95) RCA (% Stenosis): Proximal (0-10), Mid (10-20) R PDA (% Stenosis): Normal R PL1 (% Stenosis): Normal R PL2 (% Stenosis): Mid (10-20) Left Ventricular Angiography EF (%): 65 Wall Motion: Inferior (Normal), Apical (Normal), Anterior (Normal) Mitral Regurgitation: None Consultations: Dr Ward, Cardiology (Debbie Nash MD) Medication Reconciliation New Medications: Atorvastatin (Lipitor) 80 Mg Tab 1 TAB PO DAILY for 30 Days, #30 TAB 0 Refills Aspirin (Aspirin EC Low Dose) 81 Mg Ectab 81 MG PO QAM for 30 Days, #30 TAB Ciprofloxacin/Hydrocortisone (Cipro Hc 0.2-1 %) 150 Drops/10 Ml Susp 2 DROPS OT BID for 9 Days, #1 BTL Lisinopril (Lisinopril) 5 Mg Tab 5 MG PO QAM for 30 Days, #30 TAB Metoprolol Tartrate (Lopressor) (Lopressor) 50 Mg Tab 50 MG PO BID for 30 Days, #60 TAB Nitroglycerin (Nitrostat) 0.4 Mg/1 Tab Subl 0.4 MG SL UD PRN for Chest Pain for 15 Days, #15 TAB Continued Medications: Metformin Hcl (Glucophage) 1,000 Mg Tab 1000 MG PO BID, TAB Referrals At Discharge Follow up Referrals: [facility] Referral - Within 1-2 Weeks @ [facility] with Blake Ward M.D. Physician Referral - Within 1-2 Weeks with [facility] Discharge Exam Review of Systems: Constitutional: No fever, No chills, No sweats Eyes: No eye pain ENT: No hearing loss Respiratory: No cough, No sputum, No wheezing Cardiovascular: No chest pain, No orthopnea Abdomen: No pain, No nausea, No vomiting Musculoskeletal: No joint pain Genitourinary - Male: No hematuria, No dysuria Neurologic: No memory loss, No paralysis, No weakness Psychiatric: No depression symptoms Endocrine: No fatigue Hematologic / Lymphatic: No abnormal bleeding/bruising Integumentary: No rash Physical Exam: General Appearance: WD/WN, no apparent distress Eyes: normal inspection, PERRL ENT: hearing grossly normal Neck: supple, no JVD Respiratory/Chest: lungs clear, normal breath sounds, no respiratory distress Cardiovascular: regular rate, rhythm, no murmur, normal peripheral pulses Abdomen / GI: normal bowel sounds, non tender, soft Extremities: no calf tenderness, no pedal edema Neurologic/Psychiatric: alert, normal mood/affect, oriented x 3 Skin: no rash (Debbie Nash MD) Hospital Course HPI (Per admitting provider Kevin Olivares) Mr. Rose is a 66-year-old white male with a history of Uncontrolled Type 2 DM, presumed Dyslipidemia, and currently with elevated BP (without prior diagnosis of HTN) who presented acutely to [facility] ER earlier today complaining of intermittent Substernal Chest Pain for the past 2-3 days, and the development of associated nausea and vomiting at 0500 today. Patient denies any prior cardiac history or prior cardiac events - he does however have a very strong family history of heart disease. Patient states approximately 2-3 days ago he began to note intermittent chest pain (described only as pain) which would come and go, lasting 15-20 minutes at a time, with longest episode lasting approximately 60-90 minutes. He thought it was "heartburn" so he took some Tums. He is uncertain if this helped his discomfort or not. Nonetheless, this chest pain seemed to be exacerbated while working, particularly in a warm environment. After arriving at the ER, he was given sublingual nitroglycerin which relieved his discomfort. Patient offers no other complaints. He has a very mild chest discomfort at the present time, it does not radiate, and he is no longer nauseated. He denies any associated diaphoresis or dyspnea. He has not noticed any recent change in his exertional tolerance -- but he does not exercise routinely. He does work several hours every day. He denies any exertional neck, jaw, back, or arm pain. He denies any shortness of breath, unusual dyspnea on exertion, orthopnea , or PND. He denies any palpitations, syncope, or near syncope. Thus far, patient has nonspecific ST abnormality on his EKG, elevated CKmb, and an elevated Troponin I of 0.270 ng/mL. HOSPITAL COURSE: 66 yo diabetic M with NSTEMI, underwent cardiac cath 09/11/[address] Ward ( results above) ACS / NSTEMI Troponin peaked at 20, is 11 this AM For medical management - pt started on Aspirin 81mg, Lisinopril 5mg, Metoprolol 50mg BID, Atorvastatin 80mg qHS. (Of note, pt was reluctant to take Atorvastatin due to brother in law having muscle aches in the [facility] - benefits of statins were explained in detail by Dr Beach, please ensure pt is compliant) Echo: * Normal biventricular systolic function. * Normal left ventricular wall motion. * Left ventricular diastolic dysfunction. * Normal chamber dimensions. * Trace to mild tricuspid regurgitation. * Trace pulmonic and mitral regurgitation. * -- Conclusions -- * Aortic valve sclerosis mild, without significant aortic valvular stenosis. * EF 55-60% Type 2 DM: Glc 124-180 during admission HbA1c 8.4% Hypertension: Started on ERNESTO-I and Beta michele Dyslipidemia: Started on high intensity statin therapy. Bilateral Otitis Externa: Continue Cipro otic solution to finish 11 days Dispo: Discharged home in good condition 09/11/16 VTE: Heparin drip Code status: FULL Total Time Spent: Greater than 30 minutes This includes examination of the patient, discharge planning, medication reconciliation, and communication with other providers. (Debbie Nash MD) Resident Physician Supervision Note: I interviewed and examined the patient. Discussed with Dr. Nash and agree with findings and plan as documented in the note. Any exceptions or clarifications are listed here: None Documented By: Jose Beach feeling better wants to go home OK by cardiology to go home. no further CP. EXTENSIVE discussion on secondary prevention including meds (one by one, including rationale for use, risks/benefits/side effects) and lifestyle ( mediterannean diet, and once OK'd by cardiology 30mins exercise daily) answered all of his questions to the best of my ability and to his/'s satisfaction CAD w NSTEMI - med/lifestyle management, safe for home, meds as above Total Time Spent: Greater than 30 minutes (Jose Beach, D.O.) Discharge Instructions Please refer to the electronic Patient Visit Report (Discharge Instructions) for additional information. (Debbie Nash MD) Follow-Up In 1 week - with PCP, should have a BMP obtained to ensure renal fxn stable after Lisinopril initiation In 1-[address] Ward Both please ensure pt is compliant with medications and statin (Debbie Nash MD) Additional Copies To Valentín Vasquez D.O.; Blake Ward M.D.
[2016-09-11] MEDS ORDERED: METOPROLOL TARTRATE 50 MG TAB PO SCH (21:00)
== END 2016-09-11 16:50 | disposition home or self-care (01) | DRG 282 ==
LOC: C.EDB 05:53 → EDSEX 05:53 → C.2T 08:21 → ENRESERV 08:46
PROVIDERS: ADMIT Internal Medicine; ATTEND Family Medicine
PROC: B2111ZZ Fluoroscopy of Multiple Coronary Arteries using Low Osmolar Contrast (ICD-10-PCS; principal; 2016-09-11 08:57)
PROC: 4A023N7 Measurement of Cardiac Sampling and Pressure, Left Heart, Percutaneous Approach (ICD-10-PCS; principal; 2016-09-11 08:57)
PROC: B2151ZZ Fluoroscopy of Left Heart using Low Osmolar Contrast (ICD-10-PCS; principal; 2016-09-11 08:57)
DX: I21.4 Non-ST elevation (NSTEMI) myocardial infarction (principal); I25.10 Atherosclerotic heart disease of native coronary artery without angina pectoris; I10 Essential (primary) hypertension; E78.5 Hyperlipidemia, unspecified; E11.65 Type 2 diabetes mellitus with hyperglycemia; H60.93 Unspecified otitis externa, bilateral; Z87.891 Personal history of nicotine dependence; Z82.49 Family history of ischemic heart disease and other diseases of the circulatory system; Z79.84 Long term (current) use of oral hypoglycemic drugs

== ENCOUNTER 2016-09-14 22:56 | Observation (INO) | payer OTHER ==
[~2016-09-14 22:56] MED LIST: ASPEC81 PO; ATOR-26 PO; CPROT OT; LSN5 PO; METF-384 PO; METO50TA16 PO; NTRSLP4 SL
[2016-09-14] MEDS ORDERED: RAPID SEQUENCE INDUCTION BAG ONE (22:57)
[2016-09-14] MEDS ORDERED: NOREPINEPHRINE BIT INJ 8 MG in DEXTROSE 5% 500ML 500 ML IV PRN (23:15)
[2016-09-14 23:19] LABS: ISTAT CREATININE 1.1 mg/dl (0.6-1.3); ISTAT HEMOGLOBIN 19.7 g/dl (14.0-18.0); ISTAT IONIZED CALCIUM 1.01 mmol/l (1.12-1.32)
[2016-09-14 23:29] LABS: ISTAT CREATININE 1.1 mg/dl (0.6-1.3); ISTAT IONIZED CALCIUM 1.26 mmol/l (1.12-1.32)
[2016-09-14] MEDS ORDERED: SODIUM CHLORIDE 0.9% 1000ML 1,000 ML IV STA (23:32)
[2016-09-14 23:36] LABS: ISTAT ARTERIAL BLOOD GAS HCO3 11 meq/L (19-24); ISTAT ARTERIAL BLOOD GAS PCO2 50 mmHg (35-46); ISTAT ARTERIAL BLOOD GAS PO2 117 mmHg (80-95); ISTAT ARTERIAL BLOOD GAS pH 6.95 (7.35-7.45); ISTAT CARBON DIOXIDE 12 mEq/l (24-31)
[2016-09-14] MEDS ORDERED: SODIUM BICARB 8.4% INJ 50 MEQ/50 ML SYR IV ONE ×2 (23:37→23:55)
[2016-09-14] MEDS ORDERED: ALBUMIN HUMAN 25% 12.5 GM/50 ML VIAL IV ONE ×2 (23:41→23:44)
[2016-09-14] MEDS ORDERED: ASPI81TA28 PO (23:41)
[2016-09-14 23:42] LABS: HEMATOCRIT 46.4 % (42-52); MEAN CELL VOLUME 91.3 fL (80-100); MEAN CORPUSCULAR HEMOGLOBIN 29.9 pg (25-34); MEAN CORPUSCULAR HGB CONC 32.8 g/dl (32-36); MEAN PLATELET VOLUME 10.3 fL (7.4-10.4); PLATELET COUNT 276 K/uL (130-400); RED BLOOD COUNT 5.08 M/uL (4.7-6.1); WHITE BLOOD COUNT 15.01 K/uL (4.8-10.8)
[2016-09-14] MEDS ORDERED: NiCARDipine HCL INJ 2.5 MG/ML 10 ML AMP ONE (23:44)
[2016-09-14 23:45] LABS: ARTERIAL BLD GAS O2 SATURATION 97.4 % (90-95); ARTERIAL BLOOD GAS BASE EXCESS -20.5 mEq/L (-9-1.8); ARTERIAL BLOOD GAS HCO3 11 mmol/L (19-24); ARTERIAL BLOOD GAS PO2 139 mm/Hg (80-95)
[2016-09-14] MEDS ORDERED: HEPARIN SOD (PORCINE) 1000 UNIT/ML 10 ML VIAL ONE (23:45)
[2016-09-14] MEDS ORDERED: SODIUM BICARBONATE 8.4% INJ 150 MEQ in DEXTROSE 5% 1000ML 1,000 ML IV SCH (23:45)
[2016-09-14] MEDS ORDERED: EPINEPHRINE HCL 4 MG in DEXTROSE 5% 250ML IV PRN (23:45)
[2016-09-14] MEDS ORDERED: MIDAZOLAM HCL 1 MG/ML 2ML VIAL ONE ×2 (23:45→23:46)
[2016-09-14 23:46] LABS: ALLEN TEST POS (POS); O2 ADMINISTRATION 100%
[2016-09-14] MEDS ORDERED: NITROGLYCERIN/D5W 100MCG/ML 20ML SYR ONE (23:46)
[2016-09-14] MEDS ORDERED: FENTANYL CITRATE INJ 50 MCG/1 ML 2 ML VIAL ONE (23:46)
--- NOTE | 2016-09-14 23:46 | EMERGENCY ROOM VISIT NOTE ---
History Report prepared by Estephaniaibcooper: Zandra Werner Under the Supervision of: Dr. Zayra Awad D.O. First contact with patient: 23:00 Chief Complaint: RESPIRATORY DISTRESS Stated Complaint: RESPIRATORY DISTRESS History of Present Illness The patient is a 66 year old male who presents to the Emergency Room with sudden cardiac arrest that occurred just prior to arrival. Per EMS, the patient developed chest pain this evening. EMS reports that the patient then was sitting on the toilet and began developing respiratory distress. EMS reports that upon arrival to the patient's home, he was sitting in a chair in the living room with apparent trouble breathing. EMS reports that the patient was given two Nitroglycerin prior to arrival. EMS states that en-route to the emergency department the patient went unresponsive and coded as EMS arrived in the emergency department parking lot. EMS reports that the patient was recently evaluated in the emergency department and hospital for an PA. I reviewed the patient's recent hospitalization and cardiac catheterization results. The history is limited secondary to the patient's cardiac arrest. Source of History: EMS History Limited By: cardiac arrest Onset: just prior to arrival Position: other (global) Quality: other (cardiac arrest) Timing: other (sudden) Associated Symptoms: + chest pain Note: Associated Symptoms: respiratory distress Review of Systems The history and ROS are limited secondary to the patient's cardiac arrest. Past Medical & Surgical Medical Problems: (1) ACS (acute coronary syndrome) (2) Cardiac arrest (3) Dyslipidemia (4) Elevated blood pressure reading (5) Otitis externa (6) Type 2 diabetes mellitus Family History Patient reports no known family medical history. Social History Smoking Status: Former Smoker Drug Use: none Marital Status: Housing Status: lives with family Occupation Status: employed Current/Historical Medications Scheduled Aspirin (Aspirin Ec), 81 MG PO QAM Atorvastatin (Lipitor), 80 MG PO DAILY Ciprofloxacin/Hydrocortisone (Cipro Hc 0.2-1 %), 2 DROPS OT BID Lisinopril (Zestril), 5 MG PO QAM Metformin Hcl (Glucophage), 1,000 MG PO BID Metoprolol Tartrate (Lopressor) (Lopressor), 50 MG PO BID Nitroglycerin (Nitrostat), 0.4 MG UT PRN Allergies Coded Allergies: BEE STING (Verified Allergy, Unknown, swelling, 09/09/16) honey bees Physical Exam Vital Signs Date Time Temp Pulse Resp B/P (MAP) Pulse Ox O2 Delivery O2 Flow Rate FiO2 09/15/16 01:00 100 09/15/16 00:06 82/70 09/15/16 00:05 116 23 92 Mechanical Ventilator 100 09/15/16 00:01 104/76 09/15/16 00:00 26 09/14/16 23:56 90/68 09/14/16 23:55 89 09/14/16 23:53 79/67 09/14/16 23:51 76/66 09/14/16 23:50 110 34 84 09/14/16 23:49 86/70 09/14/16 23:46 115 09/14/16 23:45 100 09/14/16 23:45 121 30 09/14/16 23:42 77/63 09/14/16 23:40 111 29 87/71 99 09/14/16 23:35 113 31 09/14/16 23:35 100 09/14/16 23:34 81/63 09/14/16 23:22 77/62 09/14/16 23:20 122 25 100 09/14/16 23:18 81/62 09/14/16 23:15 125 28 09/14/16 23:14 80/66 09/14/16 23:10 123 09/14/16 23:10 123 19 09/14/16 23:07 76/65 09/14/16 23:05 88 09/14/16 23:05 132 24 09/14/16 23:02 150 09/14/16 23:00 137 20 09/14/16 23:00 39 09/14/16 22:58 0 09/14/16 22:56 Ambu-Bag 15.0 09/14/16 22:56 0 0 Physical Exam HEAD: No evidence of trauma. EYE EXAM: Pupils are mid position and minimally reactive. OROPHARYNX: Oropharyngeal airway in, being bagged by EMS. NECK: Supple, no tracheal deviation. LUNGS: Bilateral rales noted to auscultation. Equal chest rise and fall with bagging. HEART: Pulseless. ABDOMEN: Soft, no masses, no organomegaly. PELVIS: Stable. LOWER EXTREMITIES: No pitting edema. No trauma. NEURO EXAM: GCS 15. Medical Decision & Procedures ER Provider Diagnostic Interpretation: 1 view chest x-ray interpretation, pending radiology report: Et tube in good position, bilateral pulmonary edema noted, no effusions, no pneumothorax. Laboratory Results 09/14/16 23:20 Red Blood Count 5.08, Mean Corpuscular Volume 91.3, Mean Corpuscular Hemoglobin 29.9, Mean Corpuscular Hemoglobin Concent 32.8, Mean Platelet Volume 10.3 09/14/16 23:20 Test 09/14/16 00:00 09/14/16 23:14 09/14/16 23:20 09/15/16 00:38 Urine Color YELLOW Urine Appearance TURBID (CLEAR) Urine pH 5.5 (4.5-7.5) Urine Specific [place] 1.035 (1.000-1.030) Urine Protein 1+ (NEG) Urine Glucose (UA) 3+ (NEG) Urine Ketones TRACE (NEG) Urine Occult Blood 2+ (NEG) Urine Nitrite NEG (NEG) Urine Bilirubin NEG (NEG) Urine Urobilinogen NEG (NEG) Urine Leukocyte Esterase TRACE (NEG) Urine WBC (Auto) 10-30 /hpf (0-5) Urine RBC (Auto) 5-10 /hpf (0-4) Urine Hyaline Casts (Auto) 1-5 /lpf (0-5) Urine Epithelial Cells (Auto) >30 /lpf (0-5) Urine Bacteria (Auto) 1+ (NEG) Urine Renal Epithelial Cells /lpf (0-5) Urine Crystals CALCIUM OXALATE (NONE Urine Pathogenic Casts /lpf (0) Urine Yeast (Auto) PRESENT (NONE PRSENT) Bedside Hemoglobin 18.0 g/dl (14.0-18.0) Bedside Hematocrit 53 % (42-52) Bedside Sodium 138 mEq/L (135-144) Bedside Potassium 3.6 mEq/L (3.3-5.0) Bedside Chloride 101 mEq/L (101-112) Bedside Total CO2 21 mEq/l (24-31) Bedside Blood Urea Nitrogen 33 mg/dl (7-18) Bedside Creatinine 1.1 mg/dl (0.6-1.3) Bedside Glucose (other) 390 mg/dl (70-99) Bedside Ionized Calcium (Lester) 1.26 mmol/l (1.12-1.32) White Blood Count 15.01 K/uL (4.8-10.8) Red Blood Count 5.08 M/uL (4.7-6.1) Hemoglobin 15.2 g/dL (14.0-18.0) Hematocrit 46.4 % (42-52) Mean Corpuscular Volume 91.3 fL (80-100) Mean Corpuscular Hemoglobin 29.9 pg (25-34) Mean Corpuscular Hemoglobin Concent 32.8 g/dl (32-36) Platelet Count 276 K/uL (130-400) Mean Platelet Volume 10.3 fL (7.4-10.4) RDW Standard Deviation 42.9 fL (36.4-46.3) RDW Coefficient of Variation 12.8 % (11.5-14.5) Nucleated RBC Absolute Count (auto) 0.04 K/uL (0-0) Neutrophils % (Manual) 35.4 % Lymphocytes % (Manual) 45.1 % Variant Lymphocytes % (manual) 11.5 % Monocytes % (Manual) 6.2 % Eosinophils % (Manual) 0.9 % Myelocytes % 0.9 % Nucleated Red Blood Cells % 0.3 % Neutrophils # (Manual) 5.31 K/uL (1.4-6.5) Total Absolute Neutrophils 5.31 K/uL (1.4-6.5) Lymphocytes # (Manual) 6.77 K/uL (1.2-3.4) Absolute Variant Lymphocytes 1.73 K/uL Total Absolute Lymphocytes 8.50 K/uL (1.2-3.4) Monocytes # (Manual) 0.93 K/uL (0.11-0.59) Eosinophils # (Manual) 0.14 K/uL (0-0.5) Myelocytes # 0.14 K/uL (0-0) Blood Smear Review Red Blood Cell Morphology Unremarkable Prothrombin Time 11.7 SECONDS (9.0-12.0) Prothromb Time International Ratio 1.1 (0.9-1.1) Activated Partial Thromboplast Time 38.5 SECONDS (21.0-31.0) Partial Thromboplastin Ratio 1.5 Arterial Blood pH 6.97 (7.35-7.45) Arterial Blood Partial Pressure CO2 50 mmHg (35-46) Arterial Blood Partial Pressure O2 139 mm/Hg (80-95) Arterial Blood HCO3 11 mmol/L (19-24) Arterial Blood Oxygen Saturation 97.4 % (90-95) Arterial Blood Base Excess -20.5 mEq/L (-9-1.8) Arterial Blood Gas Delivery 100% David Test POS (POS) Anion Gap 26.0 mmol/L (3-11) Estimated GFR () 45.1 Estimated GFR (Non- 38.9 BUN/Creatinine Ratio 13.8 (10-20) Lactic Acid Level 15.3 mmol/L (0.4-2.0) Calcium Level 9.0 mg/dl (8.5-10.1) Total Bilirubin 0.3 mg/dl (0.2-1) Direct Bilirubin < 0.1 mg/dl (0-0.2) Aspartate Amino Transf (AST/SGOT) 396 U/L (15-37) Alanine Aminotransferase (ALT/SGPT) 336 U/L (12-78) Alkaline Phosphatase 142 U/L (45-117) Total Creatine Kinase 148 U/L (39-308) Creatine Kinase MB 3.7 ng/ml (0.5-3.6) Creatine Kinase MB Ratio 2.5 (0-3.0) Bedside Troponin I 0.800 ng/ml (0-0.045) Total Protein 6.5 gm/dl (6.4-8.2) Albumin 2.6 gm/dl (3.4-5.0) Beta-Hydroxybutyric Acid 2.88 mg/dL (0.2-2.81) Bedside Blood Gas pH (LAB) 7.16 (7.35-7.45) Bedside Blood Gas pCO2 (LAB) 75 mmHg (35-46) Bedside Blood Gas pO2 (LAB) 45 mmHg (80-95) Bedside Blood Gas HCO3 (LAB) 27 meq/L (19-24) Bedside Blood Gas Total CO2 29 mEq/l (24-31) Bedside Blood Gas Base Excess (LAB) -2.0 meq/L (-9-1.8) Bedside Blood Gas O2 Saturation 66.0 % (90-95) Laboratory results per my review. Medications Administered Medications (Trade) Dose Ordered Sig/Pako Route Start Time Stop Time Status Last Admin Dose Admin Norepinephrine Bitartrate 8 mg/ Dextrose 508 ml @ 0 mls/hr Q0M PRN IV 09/14/16 23:15 09/15/16 02:33 DC 09/14/16 23:15 0.1 MLS/HR Sodium Chloride 1,000 ml @ 999 mls/hr Q1H1M STAT IV 09/14/16 23:32 09/15/16 00:32 DC 09/14/16 23:32 999 MLS/HR Sodium Bicarbonate 150 meq/Dextrose 1,150 ml @ 0 mls/hr Q0M IV 09/14/16 23:45 09/15/16 02:33 DC 09/15/16 00:32 999 MLS/HR Sodium Bicarbonate (Sodium Bicarbonate 8.4% Inj) 100 ml STK-MED ONCE IV 09/14/16 23:37 09/14/16 23:38 DC 09/14/16 23:37 100 ML Albumin Human (Albumin 25%) 12.5 gm STK-MED ONCE IV 09/14/16 23:41 09/14/16 23:42 DC 09/14/16 23:41 12.5 GM Albumin Human (Albumin 25%) 12.5 gm STK-MED ONCE IV 09/14/16 23:44 09/14/16 23:45 DC 09/14/16 23:44 12.5 GM Midazolam HCl (Versed Inj) 2 mg STK-MED ONCE .ROUTE 09/14/16 23:45 09/14/16 23:46 DC 09/14/16 23:45 2 MG Midazolam HCl 250 ml @ 0 mls/hr Q0M PRN IV 09/14/16 23:49 09/15/16 02:33 DC 09/15/16 00:32 2 MLS/HR Sodium Bicarbonate (Sodium Bicarbonate 8.4% Inj) 100 ml STK-MED ONCE IV 09/14/16 23:55 09/14/16 23:56 DC 09/14/16 23:55 100 ML Furosemide (Lasix Inj) 40 mg STK-MED ONCE .ROUTE 09/15/16 00:07 09/15/16 00:08 DC 09/15/16 00:07 40 MG Furosemide (Lasix Inj) 40 mg STK-MED ONCE .ROUTE 09/15/16 00:30 09/15/16 00:32 DC 09/15/16 00:30 40 MG Procedure Endotracheal Intubation Indication apneic. The patient was on 100% oxygen via NRB prior to the procedure. Suction, airway equipment, RSI drugs, respiratory equipment, and appropriate personnel were prepared prior to the initiation of the procedure. A time out was taken. After observing the clinical benefit of the medications, the airway was easily visualized utilizing a 4-0 MAC. A 7.5 size ETT tube was placed atraumatically to 23 cm using standard technique. The cuff inflated without signs of malfunction. There were bilateral breath sounds, positive colormetric change, no gastric sounds, a good capnography waveform, and post procedure pulse oximetry was 90%. There were no complications. Bedside US Indication: cardiac arrest Bedside US performed by myself for cardiac evaluation during resuscitation. No obvious tamponade/effusion. Cardiac motion still noted, however markedly depressed gross EF. ECG Indication: chest pain, SOB/dyspnea, other (cardiac arrest) Rate (beats per minute): 115 Rhythm: sinus tachycardia Findings: ST depression (1 mm in V3 and V4.), ST elevation (half mm in V6), other (normal axis, normal intervals) Change: Serial EKGs were performed and no other acute changes were noted. ED Course 2256: The patient was evaluated in room B1. The patient arrived to the emergency department and was intubated. 2257: Rapid Sequence Induction Bag 1 ea NA. 2259: The patient was given 1 dose of epinephrine at this time and chest compressions continued. 2302: The patient was given 1 dose of epinephrine at this time and chest compressions continued. See code sheet for further description of the code. 2306: A pulse was found on the patient at this time. 2307: The patient's blood pressure was found to be 76/65 mmHg. 2311: The patient's case was discussed with Dr. Gimenez, Interventional Cardiology. He states that a heart alert should be called and he will be in to take the patient to the catheterization lab. Hypothermic protocol started also. 2315: Ordered Norepinephrine Bitartrate 8 mg/Dextrose 508 ml @ 0 mls/hr Protocol IV. 2316: A code Heart Alert was called at this time. 2319: I spoke to the patient's family at this time and updated them on the patient's status. They understand and agree the treatment plan. 2325: The patient's blood gas was 6.9. 2331: I reevaluated the patient and he is still holding his BP is improving. . 2332: Ordered Sodium Chloride 1000 ml @ 999 mls/hr IV. 2345: Ordered Sodium Bicarbonate 150 meq/Dextrose 1150 ml @ 0 mls/hr IV. 2346: I reevaluated the patient and he is starting to bite the tube. Dr. Gimenez and Dr. Mtz at bedside yet. 2351: The patients case was discussed with ESTHER Bauer. He will evaluate the patient for further treatment after the catheterization. 0003: I reevaluated the patient and cardiology is at the bedside. 0010: The patient was taken to the cardiac catheterization lab. Medical Decision Blood Pressure Screening: The patient is hypotensive. Medication Reconciliation: I attest that I have personally reviewed the patient' s current medication list. Pt brought as cardiac arrest which occurred just prior to arrival in ER. ROSC achieved after ACLS protocol followed and intubation. IO placed initially and then peripherals obatined also. Please see code summary. Hypothermic protocol initiated. Given recent NSTEMI, risk factors, initial complaint of chest pain followed by SOB, discussed with interventional cardiology need for possible intervention. Heart alert activated. Additional orders added once pt evaluated by medicine and cardiology. I updated family following ROSC. Cardiology spoke with them separately also. Pt in critical condition, plan to take to labeling strategist and then to ICU. Pt on pressors at this time. Pulmonary edema noted on post intubation cxr. Consults Time Called: 2308 Consulting Physician: Dr. Gimenez, Interventional Cardiology Returned Call: [phone] The patient's case was discussed with Dr. Gimenez, Interventional Cardiology. He states that a heart alert should be called and he will be in to take the patient to the catheterization lab. Additional Consults: Time Called: 2350 Consulted Physician: ESTHER Bauer Returned Call: [phone] Additional Comments: The patients case was discussed with ESTHER Bauer. He will evaluate the patient for further treatment after the catheterization. Impression Primary Impression: Cardiac arrest Additional Impressions: Chest pain Shortness of breath Pulmonary edema Acidemia NSTEMI (non-ST elevated myocardial infarction) Critical Care I have personally spent 60 minutes of critical care time in the direct management of this patient. This includes bedside care, interpretation of diagnostic studies, and testing, discussion with consultants, patient, and family members, and other required patient management activities. This 60 minutes is in excess of all separately billable procedures. Scribe Attestation The scribe's documentation has been prepared under my direction and personally reviewed by me in its entirety. I confirm that the note above accurately reflects all work, treatment, procedures, and medical decision making performed by me. Departure Information Dispostion Being Evaluated By Surgeon Valentín Connor D.O. (PCP) Problem Qualifiers Additional Impressions: Chest pain Chest pain type: unspecified Qualified Codes: R07.9 - Chest pain, unspecified Pulmonary edema Chronicity: acute Qualified Codes: J81.0 - Acute pulmonary edema
[2016-09-14] MEDS ORDERED: MIDAZOLAM 125MG/250ML D5W 250 ML IV PRN (23:49)
[2016-09-14 23:50] LABS: ARTERIAL BLOOD GAS pH 6.97 (7.35-7.45)
[2016-09-14] MEDS ORDERED: LISI-729 PO (23:51)
[2016-09-14] MEDS ORDERED: MIDAZOLAM 125MG/250ML D5W IV ONE (23:52)
[2016-09-14] MEDS ORDERED: METO50TA16 PO (23:52)
[2016-09-14] MEDS ORDERED: NTRGSL/4 UT (23:53)
[2016-09-14 23:54] LABS: URINE APPEARANCE TURBID (CLEAR); URINE BILIRUBIN NEG (NEG); URINE COLOR YELLOW; URINE EPITHELIAL CELL AUTO >30 /lpf (0-5); URINE NITRITE NEG (NEG); URINE PH 5.5 (4.5-7.5); URINE SPECIFIC GRAVITY 1.035 (1.000-1.030); UROBILINOGEN NEG (NEG)
[2016-09-14] MEDS ORDERED: ATOR-26 PO (23:54)
[2016-09-14] MEDS ORDERED: CPROT OT (23:56)
[2016-09-15 00:03] LABS: INR 1.1 (0.9-1.1); PARTIAL THROMBOPLASTIN RATIO 1.5; PROTHROMBIN TIME (PATIENT) 11.7 SECONDS (9.0-12.0)
[2016-09-15 00:05] VITALS: PULSE 116; O2SAT 92
[2016-09-15 00:06] VITALS: BP 82/70
[2016-09-15] MEDS ORDERED: FUROSEMIDE 40 MG/4 ML VIAL ONE ×2 (00:07→00:30)
[2016-09-15] MEDS ORDERED: SODIUM BICARB 8.4% INJ 50 MEQ/50 ML SYR IV ONE (00:08)
[2016-09-15] MEDS ORDERED: VASOPRESSIN INJ 50 UNITS in SODIUM CHLORIDE 0.9% 500ML 500 ML IV SCH (00:15)
[2016-09-15 00:20] LABS: ISTAT ARTERIAL BLOOD GAS HCO3 34 meq/L (19-24); ISTAT ARTERIAL BLOOD GAS PCO2 78 mmHg (35-46); ISTAT ARTERIAL BLOOD GAS PO2 66 mmHg (80-95); ISTAT ARTERIAL BLOOD GAS pH 7.25 (7.35-7.45); ISTAT CARBON DIOXIDE 36 mEq/l (24-31)
[2016-09-15 00:29] LABS: EOSINOPHIL % 0.9 %; LYMPH ABS # 6.77 K/uL (1.2-3.4); LYMPHOCYTE % 45.1 %; MYELOCYTE % 0.9 %; NEUTROPHILS % 35.4 %; VARIANT LYM ABS # 1.73 K/uL; VARIANT LYMPHOCYTE % 11.5 %
[2016-09-15 00:31] LABS: ALKALINE PHOSPHATASE 142 U/L (45-117); ALT/SGPT 336 U/L (12-78); AST/SGOT 396 U/L (15-37); BLOOD UREA NITROGEN 25 mg/dl (7-18); BUN/CREATININE RATIO 13.8 (10-20); CARBON DIOXIDE 12 mmol/L (21-32); CHLORIDE 102 mmol/L (98-107); CKMB/CK RATIO 2.5 (0-3.0); GLUCOSE 506 mg/dl (70-99); POTASSIUM 3.5 mmol/L (3.5-5.1); SODIUM 140 mmol/L (136-145)
[2016-09-15] MEDS ORDERED: AMIODARONE 150MG / 100ML D5W ONE (00:33)
[2016-09-15] MEDS ORDERED: AMIODARONE HCL INJ 50 MG/ML 3 ML VIAL ONE (00:33)
[2016-09-15 00:41] LABS: BETA-HYDROXYBUTYRATE 2.88 mg/dL (0.2-2.81)
[2016-09-15 00:43] LABS: COMPLETE YES
[2016-09-15 00:44] LABS: MANUAL MICROSCOPIC REQUIRED? NO; REVIEW REQ? YES
[2016-09-15 01:20] LABS: ISTAT ARTERIAL BLOOD GAS HCO3 27 meq/L (19-24); ISTAT ARTERIAL BLOOD GAS PCO2 75 mmHg (35-46); ISTAT ARTERIAL BLOOD GAS PO2 45 mmHg (80-95); ISTAT ARTERIAL BLOOD GAS pH 7.16 (7.35-7.45); ISTAT CARBON DIOXIDE 29 mEq/l (24-31)
[2016-09-15 01:20] LABS: ISTAT ARTERIAL BLOOD GAS HCO3 31 meq/L (19-24); ISTAT ARTERIAL BLOOD GAS PCO2 91 mmHg (35-46); ISTAT ARTERIAL BLOOD GAS PO2 47 mmHg (80-95); ISTAT ARTERIAL BLOOD GAS pH 7.14 (7.35-7.45); ISTAT CARBON DIOXIDE 33 mEq/l (24-31)
[2016-09-15] MEDS ORDERED: IV FLUIDS COMPLETED PRN (02:00)
--- NOTE | 2016-09-15 02:03 | Cardiac Catheterization ---
Procedure Note Procedure Date Sep 15, 2016. Pre-Procedure Diagnosis Non STEMI AUC Score 8 Post-Procedure Diagnosis Severe CAD Procedure(s) Performed Coronary Angiography Foundry Laborer Coreroom Pernell Author Agent(s) Mj Estimated Blood Loss 15 Medication(s) Epinephrine, Norepinephrine, Versed Amiodarone Vasopressin Summary of Findings Indication: Post-Arrest Patient post recent NSTEMI. Earlier this evening had chest tightness followed by progressive dyspnea on exertion and eventual PEA arrest. ROSC in ED after CPR and Epi x 2. Intubated in ED Post arrest ECG with subtle anterior ST depressions but no elevations. In the setting of recent NJ, known residual severe LAD disease Heart Alert activated and decision made to proceed with coronary angiography. In ED initial ABG showed pH of 6.9 --> up to 7.2 with bicarb. CXR with severe pulmonary edema. O2 sats in 80s on 100 FiO2. MAPS in 60-70s on max dose norepi Cooling started briefly in ED but stopped en route to medical laboratory technologist. In medical laboratory technologist diffuse continuous frothy sputum from ETT --> given at total of 80 IV lasix Access - 6Fr Right Radial Artery, 7Fr Right Femoral Vein Arterial SBPs in 60s --> started on Epi infusion --> SVT to 170s --> received Amiodarone 150 mg LM accessed with EBU 3.5 guide Findings: LM - Luminal irregularities LAD - Proximally calcified, 90+% mid segment disease -- unchanged from 3 days ago Circumflex - Large caliber vessel, OM2 superficial branch completely occluded at ostium, 50% stenosis in proximal segment of inferior branch. No urine output with IV lasix SBP remained in 60 to low 70s. Persistent hypoxic/hypercarbic respiratory failure with 02 sats on ABGs in 60s. Concern for mechanical complication of prior NJ and as there was BARRY 3 flow in LAD/remainder of circumflex in the setting of advanced multiorgan failure --> no benefits thought likely from attempts at PCI Procedure stopped. Patient transferred to ICU Family discussion regarding grim prognosis. They agreed with DNR status. Patient at 1:18 AM on 09/15/2016 with family at his side. Hemodynamics Rest Ao: -- Final Ao: -- LV: -- Recommendations Medical therapy and/or Counseling Specimens None Radiation Exposure (mGy) -- Contrast (mls) -- Disposition ICU ACC Data Cardiac Status Clinical evaluation leading to the procedure CAD Presntation: Non STEMI Anginal Classification: CCS IV Heart Failure: NYHA Class: CCS IV Cardiogenic Shock w/in 24Hrs: Yes Cardiac Arrest w/in 24Hrs: Yes Imaging studies past 6 months: Yes Stress studies past 6 months: No
--- NOTE | 2016-09-15 06:43 | DIAGNOSTIC IMAGING REPORT ---
CHEST ONE VIEW PORTABLE CLINICAL HISTORY: Respiratory failure. Chest pain. COMPARISON STUDY: September 09, 2016 FINDINGS: There is an endotracheal tube 27 mm above the shay. Since the prior study, the patient has developed diffuse bilateral opacities with a perihilar distribution. The findings likely represent pulmonary edema. No pleural effusions are visualized on the supine study.[ IMPRESSION: 1. Endotracheal tube 27 mm above the shay 2. Pulmonary edema pattern Electronically signed by: Tomas Dia M.D. 09/15/2016 6:42 AM Dictated Date/Time: 09/15/2016 6:41 AM
--- NOTE | 2016-09-17 06:05 | History and Physical ---
History & Physical Date & Time of Service: Sep 17, 2016 at 06:03 Chief Complaint: Respiratory Distress Primary Care Physician: Valentín Vasquez D.O. History of Present Illness Source: hospital records, EMS The patient is a 66-year-old male who was most recently admitted to [facility] from September 09 through September 11 for a non-STEMI, underwent a cardiac catheterization, with determination for medical management. EMS reports that the patient developed respiratory distress while sitting on the toilet, and when they arrived at his home, he was sitting on the chair in the living room. He was given 2 sublingual nitroglycerin while at home, and while en route to the emergency department he went unresponsive and coded as EMS arrived in the emergency department parking lot. He was then brought into the emergency department, and was coded at that time, found to have a pH of approximately 6.9 , received several boluses of sodium bicarbonate, was started on levophed drip and then phenylephrine drip, bicarbonate drip, albumin IV, and then had blood pressure return to systolic of 104, and was then taken to the cardiac chemical laboratory tester by Dr. Franklin Gimenez from interventional cardiology. The interventional cardiology report this time was no significant difference from the first catheterization a few days ago, and he was felt to be in congestive heart failure, and in a terminal state. The patient was then transferred from the cardiac chemical laboratory tester to the ICU, with determination to admit the patient for comfort measures, while the family was there in attendance and in agreement. The history of present illness of the patient was not obtainable since the patient was in a nonresponsive state the entire time while in the ED. Family History Patient reports no known family medical history. Social History Smoking Status: Unknown if Ever Smoked Smokeless Tobacco Use: No Alcohol Use: none Drug Use: none Marital Status: Housing status: lives with family Occupational Status: employed Immunizations History of Influenza Vaccine: Unknown History of Tetanus Vaccine?: Unknown History of Pneumococcal: Unknown History of Hepatitis B Vaccine: Unknown Multi-Drug Resistant Organisms History of MDRO: No Allergies Coded Allergies: BEE STING (Verified Allergy, Unknown, swelling, 09/09/16) honey bees Home Medications Scheduled Aspirin (Aspirin Ec), 81 MG PO QAM Atorvastatin (Lipitor), 80 MG PO DAILY Ciprofloxacin/Hydrocortisone (Cipro Hc 0.2-1 %), 2 DROPS OT BID Lisinopril (Zestril), 5 MG PO QAM Metformin Hcl (Glucophage), 1,000 MG PO BID Metoprolol Tartrate (Lopressor) (Lopressor), 50 MG PO BID Nitroglycerin (Nitrostat), 0.4 MG UT PRN Review of Systems Review of systems is limited due to patient's unresponsive state, and is obtained from EMS and from record review. Physical Exam The patient was seen post cardiac catheterization, sedated, nonresponsive, intubated. HEENT--pupils sluggish, mucous membranes and oropharynx dry. Neck--supple, + JVD , no bruits, thyroid normal, trachea midline, no adenopathy. Heart--bradycardic, no murmurs, rubs or gallops. Lungs--coarse breath sounds bilaterally, with crackles at the bases bilaterally. Abdomen--normal bowel sounds and soft, nontender and nondistended, no hernias or masses, no organomegaly. Extremities--no cyanosis, clubbing. 2+ pretibial bilateral pitting edema. There are good distal pulses b/l. Dermatologic--normal skin turgor, normal color, warm and dry, no abnormal lymph nodes, no rash. Neurologic--deferred Rheumatologic--deferred Psychiatric--sedated Impression Assessment and Plan Status post cardiac arrest/and stayed systolic congestive heart failure/status post repeat cardiac catheterization with no changes compared to 3 days previously--Dr. Gimenez has spoken with family, expresses concern that the patient was in an nonrecoverable state, the family agreed, and the patient was admitted to the ICU bed 106 for comfort measures. Level of Care Critical Care Advanced Directives Existing Advance Directive: Yes Existing Living Will: Yes Existing Power of 2 Year Olds Preschool Teacher: Yes Resuscitation Status DO NOT RESUSCITATE VTE Prophylaxis VTE Risk Assessment Done? Y/N: Yes Risk Level: High Given or contraindicated: SCD's
--- NOTE | 2016-09-17 06:28 | Death Pronouncement Note ---
Pronouncement Note Date & Time of Sep 17, 2016. 1:18 AM Pronouncement The patient is a 66-year-old male who was most recently admitted to [facility] from September 09 through September 11 for a non-STEMI, underwent a cardiac catheterization, with determination for medical management. EMS reports that the patient developed respiratory distress while sitting on the toilet, and when they arrived at his home, he was sitting on the chair in the living room. He was given 2 sublingual nitroglycerin while at home, and while en route to the emergency department he went unresponsive and coded as EMS arrived in the emergency department parking lot. He was then brought into the emergency department, and was coded at that time, found to have a pH of approximately 6.9 , received several boluses of sodium bicarbonate, was started on levophed drip and then phenylephrine drip, bicarbonate drip, albumin IV, and then had blood pressure return to systolic of 104, and was then taken to the cardiac feed mill lab technician by Dr. Franklin Gimenez from interventional cardiology. The interventional cardiology report this time was no significant difference from the first catheterization a few days ago, and he was felt to be in congestive heart failure, and in a terminal state. The patient was then transferred from the cardiac feed mill lab technician to the ICU, with determination to admit the patient for comfort measures, while the family was there in attendance and in agreement. At time of pronouncement the patients pupils were fixed and dilated, there was no spontaneous respiratory effort, no palpable pulse, no audible heart tones, and no response to pain or voice.
== END 2016-09-15 02:33 | disposition expired ==
LOC: EDBD 22:56 → C.EDB 22:59 → C.MSICU 09-15 00:08 → INTOOBSV 09-15 01:12 → C.MSICU 09-15 01:12
PROVIDERS: ADMIT Internal Medicine Interventional Cardiology; ATTEND Internal Medicine Interventional Cardiology
DX: I46.9 Cardiac arrest, cause unspecified (principal); E78.5 Hyperlipidemia, unspecified; E11.9 Type 2 diabetes mellitus without complications; Z87.891 Personal history of nicotine dependence; Z79.82 Long term (current) use of aspirin; R07.9 Chest pain, unspecified; E87.2 Acidosis; I21.4 Non-ST elevation (NSTEMI) myocardial infarction; I25.10 Atherosclerotic heart disease of native coronary artery without angina pectoris; I25.2 Old myocardial infarction